=== PATIENT | male | born 1965 | race Caucasian/White ===

== ENCOUNTER 2023-04-14 09:06 | Day surgery (SDC) | payer OTHER, SELFPAY ==
--- NOTE | 2023-04-13 22:59 | PCM.HP.BLA ---
History and Physical Date of Admission: 04/14/23 HISTORY OF PRESENT ILLNESS 58 year old man presents for evaluation for TBSE. He has concerns about lesions on his left occipital scalp near the hairline by posterior ear, posterolateral aspect distal right arm, and left axilla. These lesions have increased in size over the last several months. Have become more raised in configuration. He denies fever. He denies trauma. He denies recent infection. He presents at this time for further evaluation and treatment. 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 use of patternmaker plastics anticoagulation History of blood clots Neoplasm of skin of scalp Neoplasm of skin of upper arm Neoplasm of skin of upper extremity PAST SURGICAL HISTORY History of shoulder surgery Excision 1.3 cm intradermal nevus right temporal scalp, superior, with rhomboid transposition skin flap reconstruction (4.5 cm2) and excision 1 cm intradermal nevus right temporal scalp, inferior, with rhomboid transposition skin flap reconstruction (2.9 cm2) - 06/29/17 ALLERGIES No Known Allergies MEDICATIONS ezetimibe-simvastatin coenzyme [id number] E vitamin B complex multivitamin (Multiple Vitamins tablet) rivaroxaban (Xarelto) FAMILY HISTORY negative for skin cancer. Mother - Heart Disease, High Cholesterol Father - Heart Disease, Hypertension, High Cholesterol, Other Cancer. SOCIAL HISTORY Smoking Status: Never smoker Patient does not drink alcohol. REVIEW OF SYSTEMS General-denies fever, fatigue, and weight loss. Ear nose and throat-denies nasal congestion sore throat. Eyes-denies eye pain. Denies glaucoma. Denies cataracts. Endocrine-denies excessive thirst or urination. Skin-has enlarging lesions on his left occipital scalp near the hairline by posterior ear, posterolateral aspect distal right arm, and left axilla. Musculoskeletal-denies joint pain, joint stiffness, weakness of muscles and joints, back pain and arthritis. Neurologic-denies headaches. Cardiovascular-denies chest pain, shortness of breath with exertion, and fatigue, Psychiatric-denies anxiety. Denies depression. Has a little claustrophobia. Respiratory-denies chronic cough. Denies shortness of breath. Gastrointestinal-denies nausea, vomiting, diarrhea, constipation. Hematologic-denies abnormal bruising and bleeding. Genitourinary-denies hematuria and urinary frequency. PHYSICAL EXAMINATION General-well developed, well nourished, in no acute distress. HEENT-pupils equal round and reactive to light. Extraocular muscles intact. Throat is clear. On the left occipital scalp near the hairline by posterior ear is an erythematous lesion that is nodular and raised in configuration. Measures 0.5 cm. Has irregular borders. No ulceration. Lesion is nontender. Neck-supple and nontender. No cervical adenopathy. No suspicious lesions noted. Chest wall-no suspicious lesions noted. Lungs-clear to auscultation. Heart-regular rate and rhythm. Abdomen-soft and nondistended. Extremities-full range of motion. No axillary adenopathy. Radial pulses are palpable. On the posterolateral aspect distal right arm is an erythematous lesion that has irregular borders. Measures 1.2 cm. Slightly raised in configuration. No ulceration. In the left axilla is a pedunculated lesion that measures 0.5 mm. It is raised in configuration with irregular borders. Some tenderness to palpation. No ulceration. No other suspicious lesions noted. Neuro--cranial nerves II through XII grossly intact. Psych-normal mood and affect. ASSESSMENT 1. 0.5 cm erythematous lesion left occipital scalp near hairline by posterior ear. 2. 1.2 cm erythematous lesion posterolateral aspect distal right arm. 3. 0.5 cm irritated lesion left axilla. 4. History of blood clots. 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 PLAN Recommend excision of these lesions (left occipital scalp near hairline by posterior ear, posterolateral aspect distal right arm, and left axilla) and send them to Pathology for analysis to rule out carcinoma. If carcinoma is present, then will need further excision with skin graft or skin flap reconstruction. Patient is on patternmaker plastics anticoagulation with Xarelto. Will check with his PCP to see who manages the medication and if it is safe to stop the medication for a couple of days at the time of surgery. Surgery will be done on an outpatient basis under local anesthesia and IV sedation. Patient was informed of the risks and complications of the procedure including alternatives to surgery. These were discussed with the patient personally. Patient voices understanding and wishes to proceed. Some of the risks and complications were included in a form from the [employer]. Potential risks and complications included but not inclusive of bleeding, infection, seroma, hematoma, bruising, swelling, loss of sensation to skin, partial or complete loss of skin flap and/or skin graft, wound breakdown, need for wound care, poor scarring, poor aesthetic outcome, intra operative cardiac or neurologic events, DVT, PE, and reaction to anesthesia.
--- NOTE | 2023-04-14 | IMM_PTH ---
PATIENT: EMMA FLORENCE [place] [facility] [place][id number] AGE/SX: 58/M ROOM: RE04/14/[address]: Dr. Coleman Yu MD : 1965 BED: DIS: 04/14/2023 SPEC #: [id number] RECD: 04/16/23 12:30 STATUS: LUIS REQ #: [id number] AIDEE: 04/14/23 00:[address]: Coleman Yu DEPT: IMMUNOHISTOCHEMISTRY RECD BY: Francine Webber ENTERED: 04/16/23 12:32 SP TYPE: IMMUNO OTHR DR: HEATHER Dunn Tissues: A - Skin of scalp, NOS Procedures: SMA (add) CD31 (add) CD34 (add) DESMIN (add) FACTOR VIII (add) MELAN-A (add) Vimentin (initial) S-100 (add) PHYSICIAN & INSTITUTION [place] [id number] SPECIMEN INFORMATION: Tissue Source: A - Left occipital skin lesion Clinical Info: Erythematous lesion left occipital scalp by posterior ear Specimen Number: [id number] CPT code: 17007, 02391 x7 METHODOLOGY: Deparaffinized sections of prefer/formalin-fixed tissue or PAP/DQ stained slides are incubated with monoclonal/polyclonal antibodies/oligonucleotide probes. Localization is made via biotin free immunoperoxidase method. Appropriate controls are performed and reacted as expected. Results on target cell population are indicated in the following table: RESULTS: ANTIBODY / CLONE RESULT Block A Vimentin (V9) positive CD31 (SHAYY/70A) negative Factor VIII (R Ag) negative CD34 (QBEnd-10) negative Actin (1A4) positive, weak Desmin (CE-R-11) negative Melan A (A103) negative S-100 (4C4.9) positive These tests were developed and their performance characteristics determined by [facility]. They may not have been cleared or approved by the U.S. Food and Drug Administration. The FDA has determined that such clearance or approval is not necessary. The above immunohistochemical/dualISH markers are ordered and reviewed by the Pathologist. INTERPRETATION: A. Left occipital skin lesion, shave biopsy: Benign neural tumor, favor schwannoma. ILYA:thompson 04/19/2023
--- NOTE | 2023-04-14 | LES_PTH ---
PATIENT: EMMA [place] [facility] [place][id number] AGE/SX: 58/M ROOM: RE04/14/[address]: Dr. Coleman Yu MD : 1965 BED: DIS: 04/14/2023 SPEC #: [id number] RECD: 04/14/23 11:32 STATUS: LUIS LULÚ #: [id number] AIDEE: 04/14/23 00:[address]: Coleman Yu DEPT: SURGICAL PATHOLOGY RECD BY: Francine Webber ENTERED: 04/14/23 12:06 SP TYPE: Lesion OTHR DR: HEATHER Dunn Tissues: A - Skin of scalp, NOS B - Skin of arm C - Skin of axilla, NOS D - Skin of arm Procedures: Frozen Section (charge) Surgery Specimen Level III HEADER OPERATION: Excision lesion left occipital scalp near hairline by posterior ear PRE-OP DIAGNOSIS: Erythematous lesion left occipital scalp by posterior ear; Erythematous lesion posterolateral aspect distal right arm; irritated lesion left axilla TISSUE SUBMITTED: A - Left occipital skin lesion, frozen section, B - Skin lesion, distal right arm, frozen section, C - Irritated lesion left axilla, suture at 12 o'clock, D - Actinic keratosis with atypia, suture at 12 o'clock FROZEN SECTION DIAGNOSIS A. Left occipital skin lesion, shave biopsy: Favor benign fibrous/neural lesion. B. Skin lesion, distal right arm, shave biopsy: Actinic change with moderate to focal severe atypia. AM:thompson 04/14/2023 MICROSCOPIC DIAGNOSIS A. Left occipital skin lesion, shave biopsy: Benign neural tumor, favor schwannoma. See comment. B. Skin lesion, distal right arm, shave biopsy: Actinic keratosis with moderate to severe atypia and focal squamous cell carcinoma in situ. C. Irritated lesion left axilla, biopsy: Fibroepithelial polyp (skin tag). D. Actinic keratosis with atypia distal right arm, excisional biopsy: Actinic keratosis with focal moderate to severe atypia/squamous cell carcinoma in situ. Solar elastosis. Focal ulceration, biopsy site of specimen B. See comment. SJ:thompson 04/16/2023 COMMENT A. Immunohistochemistry ([id number]) supports the above diagnosis. D. The resection margins are free of atypia/squamous cell carcinoma in situ. Case has been reviewed in consultation with Dr. Barber who concurs with the above diagnosis. IDC:AM MICROSCOPIC DESCRIPTION Slides are reviewed. GROSS DESCRIPTION A - Received fresh for frozen section consultation labeled with the patient's name is a specimen designated lesion left occipital scalp. The specimen consists of a holbrook shaved biopsy of skin measuring 0.7 x 0.6 x <0.1 cm. The specimen is inked, bisected and totally submitted for frozen section consultation in one block. / AM: 04/14/2023 B - Received fresh for frozen section consultation labeled with the patient's name is a specimen designated lesion posterior distal right arm. The specimen consists of a single shaved biopsy of holbrook skin measuring 1.1 x 1.1 x 0.1 cm. The specimen is inked, serially sectioned and totally submitted for frozen section consultation in one block. / SJ: 04/14/2023 C - Received in fixative is one container labeled with the patient's name and designated irritated lesion left axilla. The specimen consists of a dark holbrook fragment of skin with suture at 12 o'clock measuring 1.0 x 0.5 x 0.5 cm. The 12 o'clock position is inked in black ink. The remainder of the specimen is inked in red ink. The specimen is bisected and totally submitted in one cassette. / AM: 04/15/2023 D - Received in fixative is one container labeled with the patient's name and designated actinic keratosis. The specimen consists of an ellipse of excised skin measuring 3.0 x 2.2 x 0.3 cm. A suture is present at the 12 o'clock position. The specimen is differentially inked as follows: 12 o'clock - black, 3?o'clock - green, 6 o'clock - blue and 9 o'clock - red. The cutaneous surface displays a shallow ulcer measuring 1.2 cm in greatest dimension consistent with recent biopsy. The specimen is serially sectioned and totally submitted in two cassettes. / AM:thompson 04/15/2023 TC:0 CPT: 53640 x3, 91542, 93177 x2
[2023-04-14] MEDS: Lactated Ringers 1,000 ML 15 ML IV (09:50)
[2023-04-14 09:52] VITALS: BP 140/92; PULSE 62; RESP 18; TEMP 36.4; O2SAT 100; BMI 29.5
[2023-04-14] MEDS: Mupirocin Ointment 22gm Tube 1 APPLIC (10:18)
[2023-04-14] MEDS: Lidocaine 1% /Epi 1:100 (50ml) 50 ML VIAL (10:19)
[2023-04-14] MEDS: Clindamycin 900 MG/50 ML BAG 75 MG IV (10:35)
[2023-04-14 12:45] VITALS: BP 105/63; BP 140/92; PULSE 54; RESP 16; TEMP 36.3; O2SAT 100
[2023-04-14 12:50] VITALS: BP 110/69; BP 140/92; PULSE 56; RESP 16; O2SAT 100
[2023-04-14 12:55] VITALS: BP 125/84; BP 140/92; PULSE 66; RESP 16; O2SAT 99
[2023-04-14 12:59] VITALS: BP 131/74; BP 140/92; PULSE 62; RESP 16; TEMP 36.7; O2SAT 100
--- NOTE | 2023-04-14 13:07 | OP.PCM_ITS ---
Problems Associated Problem List Diagnoses (1) Neoplasm of skin of scalp: (2) Neoplasm of skin of upper arm: (3) Neoplasm of skin of upper extremity: (4) Actinic keratosis: (5) History of blood clots: (6) Current use of alf anticoagulation: Report of Operation Date of Procedure: 04/14/23 Pre-Operative Diagnosis: 1. 0.5 cm erythematous lesion left occipital scalp near hairline by posterior ear. 2. 1.2 cm erythematous lesion posterolateral aspect distal right arm. 3. 0.5 cm irritated lesion left axilla. 4. History of blood clots. 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 Post-Operative Diagnosis: 1. 0.5 cm benign lesion left occipital scalp near hairline by posterior ear. 2. 1.2 cm actinic keratosis with atypia posterolateral aspect distal right arm. 3. 0.5 cm irritated lesion left axilla. 4. History of blood clots. 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 Surgery/Procedure Performed:: 1. Intradermal excision 0.5 cm benign lesion left occipital scalp near hairline by posterior ear. 2. Excision 1.2 cm actinic keratosis with atypia posterolateral aspect distal right arm with rhomboid transposition skin flap reconstruction (10.58 cm2). 3. Excision 0.5 cm irritated lesion left axilla with 1.5 cm layered closure. Description of Surgical Findings:: 58 year old man presents for evaluation for TBSE. He has concerns about lesions on his left occipital scalp near the hairline by posterior ear, posterolateral aspect distal right arm, and left axilla. These lesions have increased in size over the last several months. Have become more raised in configuration. He denies fever. He denies trauma. He denies recent infection. Patient was informed of the risks and complications of the procedure including alternatives to surgery. These were discussed with the patient personally. Patient voices understanding and wishes to proceed. Some of the risks and complications were included in a form from the [employer]. Potential risks and complications included but not inclusive of bleeding, infection, seroma, hematoma, bruising, swelling, loss of sensation to skin, partial or complete loss of skin flap and/or skin graft, wound breakdown, need for wound care, poor scarring, poor aesthetic outcome, intra operative cardiac or neurologic events, DVT, PE, and reaction to anesthesia. Frozen section left occipital scalp near hairline by posterior ear lesion - benign, and no carcinoma seen. Frozen section posterolateral aspect distal right arm lesion - actinic keratosis with atypia, and no carcinoma seen, and could not rule out invasion . Surgeon: Coleman Yu MD wildland firefighter: Melodie Davison RNFA Type of Anesthesia: Local MAC (Xylocaine with epinephrine and IV sedation.) Anesthesiologist: Filemon Acosta MD and Socorro Harris CRNA Specimen's removed: 1. Erythematous lesion left occipital scalp near hairline by posterior ear to Pathology as a frozen section. 2. Erythematous lesion posterolateral aspect distal right arm to Pathology as a frozen section. 3. 0.5 cm irritated lesion left axilla to Pathology. 4. Actinic keratosis with atypia posterolateral aspect distal right arm to Pathology. Drains: None. Estimated Blood Loss (mL): 20. Description of Procedure: Patient was taken to OR in supine position and was given IV sedation. The was prepped and draped in the usual fashion. SCD's were placed for DVT prophylaxis. Perioperative antibiotics were given intravenously. The erythematous lesion left occipital scalp near hairline by posterior ear, erythematous lesion posterolateral aspect distal right arm, and irritated lesion left axilla were infiltrated with xylocaine and epinephrine. After waiting 5 minutes for the anesthetic to take effect, I excised the left occipital scalp near hairline by posterior ear lesion and the posterolateral aspect distal right arm lesion in an intradermal fashion and sent to Pathology as a frozen section for analysis to rule out carcinoma. While Pathology was working on the frozen sections, I excised the irritated lesion left axilla in an oblique elliptical fashion down into the subcutaneous tissue. A suture was marked at the 12 oclock position for pathology orientation. The lesion was sent to Pathology for analysis to rule out carcinoma. Hemostasis was obtained with electrocautery. The wound was c losed in a layered fashion with 3-0 Monocryl interrupted sutures for the deep dermis and subcutaneous tissue. The skin was approximated with 4-0 Nylon simple interrupted sutures. Antibiotic ointment was applied to the incision followed by an Op-Site dressing. At this time, the frozen sections were available. The left occipital scalp near hairline by posterior ear lesion was a benign lesion and no carcinoma seen. The posterolateral aspect distal right arm lesion was an actinic keratosis with atypia, and no carcinoma seen and could not rule out invasion. So no more surgery will be done to the left occipital scalp near hairline by posterior ear lesion. Hemostasis was obtained with silver nitrate chemical cauterization. Antibiotic ointment was applied. He will need further surgery on the posterolateral aspect distal right arm lesion which showed an actinic keratosis with atypia. Since we could not rule out invasion, a full thickness excision will be done into the subcutaneous tissue. In case the final pathology report shows invasive carcinoma, I will proceed with the appropriate margin as though invasive carcinoma was already present. By doing this, no further surgery would be needed. I marked out the lesion with a 5 mm margin in all directions in a rhomboid fashion. After infiltrating the markings with xylocaine and epinephrine, Incisions were made in a rhomboid fashion. The lesion was excised in a full thickness fashion. A suture was marked at the 12 oclock position for pathology orientation. The lesion was sent to Pathology for analysis to rule out carcinoma at the margins. A rhomboid flap was designed adjacent to the wound. Incisions were made and the flap was elevated on a subcutaneous pedicle, and the flap was easily transposed into the wound defect with minimal distortion and minimal tension. Hemostasis was obtained with electrocautery. The flap was then sutured to the wound in a layered fashion with 3-0 Monocryl interrupted sutures for the deep dermis and subcutaneous tissue. The skin was approximated with 4-0 Nylon simple interrupted sutures. No vascular compromise was noted on the flap. No clinical evidence of hematoma. The size of the wound and the size of the flap needed to close the wound defect was 10.58 cm2. Antibiotic ointment was applied to the suture lines followed by 4x4 gauze and a compression dayami wrap. Patient tolerated the procedure well and was sent to PACU in satisfactory condition. Patient will be sent home on antibiotics and pain medication. He will keep his head and right arm elevated during the initial postoperative period. Patient will followup in a week for a wound check and for discussion of the pathology report. I will remove the sutures in 2 weeks. Grafts/Implants Used: None. Procedure Start Time: 11:22 Procedure Stop Time: 12:38 Complications None. Admit VTE Documentation VTE Present on Admission: No VTE Mechan Device Prophylaxis: SCD's VTE Pharm Prophylaxis ordered?: No Addendum Addendum: Surgery Charges CPT - 59059 ICD-10 - L57.0, D49.2, Z86.718, Z79.01 05958 D49.2, Z86.718, Z79.01, D49.2 34878 D49.2, Z86.718, Z79.01, D49.2 07452 D49.2, Z86.718, Z79.01, D49.2
--- NOTE | 2023-04-14 13:14 | DCINST_ITS ---
Discharge Instructions Diet Discharge Diet: No restrictions and - (encourage nutritional supplementation with protein to help the healing process.) Activity Discharge Activity: May Shower (in two days.) and - (no heavy lifting. elevate right arm. keep head elevated.) May shower in (days): 2 May resume sexual activity in: No Restrictions Weight Bearing Status: Weight bearing as tolerated Lifting Restrictions: 20 lbs. Keep extremity elevated above heart level: Right Arm and - (elevate head) Dressing / Incision Call your doctor if your incision/area has: Continuous Slow Oozing, Sudden Increased Bleeding, Increased Pain/ Swelling, Increased Redness, Foul Smelling Discharge and Swelling at the incision site Call your doctor if you observe: Fever of 101 or Higher, Coldness, Increased Pain, Shortness of breath, Chest pain, Calf discomfort and Uncontrolled pain Suture Line Care: - (after removing the operative dressing in two days, apply antibiotic ointment to suture lines daily.) Remove Dressing in: 2 days (after removing the operative dressing in two days, apply antibiotic ointment to suture lines daily.) Cleanse incision/area with: Soap & Water (may get incisions wet in the shower in two days.) Follow Up Care Please Follow Up With: Coleman Yu MD When: one week. call [phone] for appt. Test Results: Test results from this visit will be discussed in further detail at your follow- up appointment, if applicable. Discharge Plan Admission Primary Reason for Your Visit: excision actinic keratosis with atypia posterolateral aspect rt distal arm Attending Provider: Coleman Yu Primary Care Provider: Rigoberto Henriquez Discharge Orders/Prescriptions Prescriptions: New clindamycin HCl [Cleocin HCl] 300 mg capsule 300 mg PO TID Qty: 12 0RF L.acidoph,saliva-B.bif-S.therm [Acidophilus Probiotic Blend] 175 mg capsule 1 cap PO DAILY Qty: 10 0RF oxycodone-acetaminophen [Percocet] 5-325 mg tablet 1 tab PO Q6H PRN (Reason: pain (scale score 7-10)) 5 Days Qty: 20 0RF Rx Instructions: 20 tabs (twenty) Continued Xarelto 10 mg tablet 10 mg PO DAILY Rx Instructions: for 35 days multivitamin [Multiple Vitamins] Tablet 1 tab PO DAILY ezetimibe-simvastatin 1 TABLET tablet 1 tab PO QPM vitamin B complex 1 EACH tablet 1 ea PO DAILY coenzyme [id number] E 1 EACH capsule 1 ea PO DAILY Referrals / Follow Up: Rigoberto Henriquez PA [Primary Care Provider] - Disposition Disposition (needs filled in before D/C Order can be placed): Home, Self Care
[2023-04-14 14:11] VITALS: BP 126/78; BP 140/92; PULSE 55; RESP 18; TEMP 36.6; O2SAT 96
== END 2023-04-14 14:37 | disposition home or self-care (01) ==
LOC: SDC 09:08 → AC 09:10
PROVIDERS: PCP Physician Assistant; Referring Provider Surgery; Visit Provider Surgery
PROC: (CPT 12031; principal; 2023-04-14 10:20)
DX: L57.0 Actinic keratosis (principal); Z79.01 Long term (current) use of anticoagulants; D49.2 Neoplasm of unspecified behavior of bone, soft tissue, and skin; Z86.718 Personal history of other venous thrombosis and embolism
CPT/HCPCS: 12031; 11305; 11401; 14021; 00300; 88304; 88305; 88331; 88341; 88342; J7120; J2405

== ENCOUNTER → 2023-08-31 | Outpatient (CLI) | payer OTHER, SELFPAY ==
--- OUTSIDE RECORDS SUMMARY | 2023-08-31 08:32 | XMS RPT_ITS | CCD ---
Author Name Unknown Address [id number] [place] [address] Organization [facility] Care Team Providers Care Filler Shredder Machine Name Role Phone Coleman Yu MD Unavailable Gladys Wilson Unavailable Gladys Wilson Primary Care Provider Gladys Wilson Primary Care Provider DURGA ANDRE Attending Unavailable GLADYS WILSON Primary Care Unavailable DURGA ANDRE Attending Unavailable GLADYS WILSON Primary Care Unavailable DURGA ANDRE Attending Unavailable GLADYS WILSON Primary Care Unavailable DURGA ANDRE Admitting Unavailable DURGA ANDRE Referring Unavailable GLADYS WILSON Primary Care Unavailable LAURA WHITLOCK Attending Unavailable DURGA ANDRE Attending Unavailable GLADYS WILSON Primary Care Unavailable DURGA ANDRE Attending Unavailable GLADYS WILSON Primary Care Unavailable DURGA ANDRE Attending Unavailable TOMGLADYS TRAN Primary Care Unavailable DURGA ANDRE Attending Unavailable TOMGLADYS TRAN Primary Care Unavailable DURGA ANDRE Attending Unavailable TOMGLADYS TRAN Primary Care Unavailable DURGA ANDRE Attending Unavailable GLADYS WILSON Primary Care Unavailable DURGA ANDRE Attending Unavailable GLADYS WILSON Primary Care Unavailable DURGA ANDRE Admitting Unavailable TOMGLADYS TRAN Primary Care Unavailable DURGA ANDRE Admitting Unavailable MICHAEL POLKIKA Attending Unavailable DURGA ANDRE Referring Unavailable GLADYS WILSON Primary Care Unavailable DURGA ANDRE Admitting Unavailable RM RAMIREZ Attending Unavailable ANDRE, DURGA ADAN Referring Unavailable GLADYS WILSON Primary Care Unavailable ANDRE, DURGA ADAN Admitting Unavailable WARNES, RM Attending Unavailable ANDRE, DURGA ADAN Referring Unavailable TOMGLADYS TRAN Primary Care Unavailable ANDRE, DURGA ADAN Admitting Unavailable WARNES, RM Attending Unavailable ANDRE, DURGA ADAN Referring Unavailable TOMGLADYS TRAN Primary Care Unavailable ANDRE, DURGA ADAN Admitting Unavailable WARNES, RM Attending Unavailable ANDRE, DURGA ADAN Referring Unavailable TOMGLADYS TRAN Primary Care Unavailable ANDRE, DURGA ADAN Admitting Unavailable MALIK, CHRISTOPHER Attending Unavailable ANDRE, DURGA ADAN Referring Unavailable TOMGLADYS TRAN Primary Care Unavailable ANDRE, DURGA ADAN Admitting Unavailable MALIK, CHRISTOPHER Attending Unavailable ANDRE, DURGA ADAN Referring Unavailable TOMMARC, GLADYS URIBE Primary Care Unavailable ANDRE, DURGA ADAN Admitting Unavailable MALIK, CHRISTOPHER Attending Unavailable ANDRE, DURGA ADAN Referring Unavailable TOMGLADYS TRAN Primary Care Unavailable ANDRE, DURGA ADAN Admitting Unavailable WARNES, RM Attending Unavailable ANDRE, DURGA ADAN Referring Unavailable TOMGLADYS TRAN Primary Care Unavailable ANDRE, DURGA ADAN Admitting Unavailable WARNES, RM Attending Unavailable ANDRE, DURGA ADAN Referring Unavailable GLADYS WILSON Primary Care Unavailable TOMGLADYS TRAN Primary Care Unavailable COLOMBIAN, DEMETRIS LYLES Attending Unavailable COLOMBIAN, DEMETRIS LYLES Admitting Unavailable Gladys Wilson Primary Care Provider Gladys Wilson Unavailable Pedro Escobar Unavailable Unavailable NewTed horner M Unavailable Unavailable Unavailable Newsiri Ted Unavailable Heather Cee Unavailable Unavailable Hamad, Ty Unavailable Unavailable Newbill, Ted M Unavailable Unavailable Unavailable Unavailable Unavailable Martinez, Mr. Louismilla Omalley Primary Care Unavail able Newbill, Ted Omalley Primary Care Unavail able Newbill, Mr. Louismilla Omalley Primary Care Unavail able Newbill, Mr. Louismilla Omalley Attending Unavail able Newbill, Mr. Ted Omalley Referring Unavail able Newbill Ted PAREDES Primary Care Provider MARTINEZ, GRANT OMALLEY Attending Unavail able NEWBILL, PAC TED SHAHRAM Primary Care Unavail able NEWBILL, PAC TED SHAHRAM Attending Unavail able NEWBILL, PAC TED SHAHRAM Primary Care Unavail able NEWBILL, PAC TED OMALLEY Primary Care Unavail able Hamad, Dr. Crawford Attending Unavailable Hamad, Dr. Crawford Admitting Unavailable Hamad, Dr. Crawford Attending Unavailable NEWBILL, PAC TED OMALLEY Primary Care Unavail able Hamad, Dr. Crawford Admitting Unavailable Hamad, Dr. Crawford Attending Unavailable NEWBILL, PAC TED OMALLEY Primary Care Unavail able Horn, Ms. Yancey Attending Unavailable Newbill, Mr. Ted Omalley Primary Care Unavail able Horn, Ms. Yancey Attending Unavailable Newbill, Mr. Ted Omalley Primary Care Unavail able NEWBILL, TED M Primary Care Unavailable NEWBILL, TED M Primary Care Unavailable NEWBILL, TED M Primary Care Unavailable RASHAD EAGLE S Attending Unavailable RASHAD EAGLE Referring Unavailable NEWBILL, TED M Primary Care Unavailable FCO, RASHAD S Referring Unavailable NEWBILL, TED M Primary Care Unavailable RASHAD EAGLE S Attending Unavailable FCO, RASHAD S Referring Unavailable NEWBILL, TED M Primary Care Unavailable NEWBILL, TED M Attending Unavailable NEWBILL, TED M Primary Care Unavailable CHAU HUGO Attending Unavailable FCO, RASHAD S Referring Unavailable NEWBILL, TED M Primary Care Unavailable NEWBILL, TED M Attending Unavailable NEWBILL, TED M Primary Care Unavailable NEWBILL, TED M Attending Unavailable NEWBILL, TED M Primary Care Unavailable Allergies Allergy Classification Reported Allergen(s) Allergy Type Date of Onset Reaction(s) Facility (1 source) ALLERGIES NOT ON FILE; Translations: [ALLERGIES NOT ON FILE] Propensity to adverse reactions (disorder) [facility] Medications Current Medications Medication Drug Class(es) Dates Sig (Normalized) Sig (Original) ezetimibe 10 mg / simvastatin 20 mg oral tablet (20 sources) HMG-CoA Reductase Inhibitor, Dietary Cholesterol Absorption Inhibitor Start: 01-13-2021 End: 12-22-2022 take 1 tablet by mouth once daily ezetimibe-simvasta tin (Vytorin) 10-20 mg tablet Indications: Dyslipidemia Take 1 tablet by mouth once daily. 90 tablet 3 12/22/2022 Active Completed/Discontinued Medications Medication Drug Class(es) Dates Sig (Normalized) Sig (Original) acetaminophen 325 mg / oxyCODONE hydrochloride 5 mg oral tablet (12 sources) Opioid Agonist Start: 04-14-2023 End: 06-08-2023 oxyCODONE-acetamino phen (Percocet) 5-325 mg tablet TAKE 1 TABLET BY MOUTH EVERY 6 HOURS NEEDED FOR PAIN (SCALE SCORE 7-10) FOR 5 DAYS 20 tablet 0 04/14/2023 06/08/2023 Discontinued (Med List Cleanup) Problems Active Problems Problem Classification Problem Date Documented Da te Episodic/Chronic Administrative/social admission (2 sources) Encounter for nonprocreative genetic counseling; Translations: [Patient care statuses] Onset: Episodic Cardiac dysrhythmias (13 sources) Supraventricular tachycardia; Translations: [Supraventricular tachycardia] Onset: 3 12-22-2022 Chronic Coagulation and hemorrhagic disorders (20 sources) Factor V Leiden mutation; Translations: [Primary hypercoagulable state] Onset: 3 12-22-2022 Chronic Disorders of lipid metabolism (16 sources) Dyslipidemia; Translations: [Other and unspecified hyperlipidemia] Onset: 3 12-22-2022 Chronic Immunizations and screening for infectious disease (2 sources) Contact with or exposure to other viral diseases; Translations: [Contact with and (suspected) exposure to other viral communicable diseases] 03-13-2021 Episodic Other circulatory disease (5 sources) 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; Translations: [Nevus, non-neoplastic] Onset: 3 06-08-2023 Episodic Other connective tissue disease (3 sources) Impingement syndrome of right shoulder; Translations: [Impingement syndrome of right shoulder] Onset: 8 06-28-2018 Episodic Other connective tissue disease (2 sources) Rotator cuff syndrome; Translations: [Traumatic tear of right rotator cuff, unspecified tear extent, subsequent encounter] Episodic Other connective tissue disease (1 source) Pain in right lower limb; Translations: [Pain in limb] 01-07-2021 Episodic Other connective tissue disease (1 source) Pain in lower limb; Translations: [Pain in limb] Onset: 1 01-07-2021 Episodic Other connective tissue disease (11 sources) Lateral epicondylitis of left humerus; Translations: [Lateral epicondylitis] Episodic Other connective tissue disease (1 source) Tear of right rotator cuff; Translations: [Right rotator cuff tear] Other connective tissue disease (1 source) Pain in bilateral legs; Translations: [Leg pain, bilateral] Other lower respiratory disease (9 sources) Dyspnea; Translations: [Dyspnea, unspecified] Onset: 3 06-04-2023 Episodic Other lower respiratory disease (2 sources) Dyspnea, unspecified; Translations: [Dyspnea, unspecified] Onset: 3 Episodic Other nutritional; endocrine; and metabolic disorders (11 sources) H/O: raised blood lipids; Translations: [Personal history of other endocrine, metabolic, and immunity disorders] Episodic Other screening for suspected conditions (not mental disorders or infectious disease) (2 sources) Encounter for nonprocreative screening for genetic disease carrier status; Translations: [Breast cancer genetic marker of susceptibility negative] Onset: 3 Episodic Other skin disorders (1 source) Localized swelling, mass and lump, lower limb; Translations: [Localized superficial swelling, mass, or lump] 01-07-2021 Episodic Other skin disorders (1 source) Localized swelling, mass and lump, left upper limb; Translations: [Localized swelling, mass and lump, left upper limb] Onset: 3 Episodic Other upper respiratory infections (10 sources) Acute rhinosinusitis; Translations: [Acute sinusitis, unspecified] Episodic Phlebitis; thrombophlebitis and thromboembolism (13 sources) Superficial vein thrombosis; Translations: [Acute venous embolism and thrombosis of other specified veins] Onset: 3 02-11-2021 Episodic Past or Other Problems Problem Classification Problem Date Documented Date Episodic/Chronic Diabetes mellitus without complication (3 sources) Prediabetes; Translations: [Prediabetes] Onset: 12-22-2022 12-22-2022 Episodic Other connective tissue disease (1 source) Pain in right leg; Translations: [Pain in right leg] Onset: 03-05-2022 Episodic Other non-traumatic joint disorders (6 sources) Pain in left elbow; Translations: [Pain in left elbow] Onset: 03-01-2023 Episodic Residual codes; unclassified (20 sources) History of repair of musculotendinous cuff of shoulder; Translations: [S/P rotator cuff repair] Onset: 06-05-2019 06-05-2019 Episodic Unclassified (6 sources) Onset: 12-22-2022 Resolved: 08-16-2023 12-22-2022 Unclassified (3 sources) Supraventricular tachycardia, unspecified; Translations: [Supraventricular tachycardia, unspecified] Onset: 06-01-2023 Results Test Name Value Interpretation Reference Range Facil ity Vital Signs Date Time Vital Sign Value Performing Clinician Facility 08-16-2023 15:59-0500 Body height 180.3 cm Ted Newbill PA-C Work Phone: [facility] 08-16-2023 15:59-0500 Body mass index (BMI) [Ratio] 29.32 kg/m2 Ted Newbill PA-C Work Phone: [facility] 08-16-2023 15:59-0500 Body temperature 97.7 [degF] Ted Newbill PA-C Work Phone: [facility] 08-16-2023 15:59-0500 Body weight 95.35 kg Ted Newbill PA-C Work Phone: [facility] 08-16-2023 15:59-0500 Diastolic blood pressure 87 mm[Hg] Ted Newbill PA-C Work Phone: [facility] 08-16-2023 15:59-0500 Heart rate 94 /min Ted Newbill PA-C Work Phone: [facility] 08-16-2023 15:59-0500 Systolic blood pressure 148 mm[Hg] Ted Newbill PA-C Work Phone: [facility] 06-21-2023 10:06-0500 Body height 180.3 cm Rashad Eagle APRN-DIE CASTING MACHINE SETTER Work Phone: [facility] 06-21-2023 10:06-0500 Body mass index (BMI) [Ratio] 29.8 kg/m2 Rashad Eagle MANAGER AGENCY-DIE CASTING MACHINE SETTER Work Phone: [facility] 06-21-2023 10:06-0500 Body temperature 97.3 [degF] Rashad Eagle MANAGER AGENCY-DIE CASTING MACHINE SETTER Work Phone: [facility] 06-21-2023 10:06-0500 Body weight 96.89 kg Rashad Eagle MANAGER AGENCY-DIE CASTING MACHINE SETTER Work Phone: [facility] 06-21-2023 10:06-0500 Diastolic blood pressure 79 mm[Hg] Rashad Eagle MANAGER AGENCY-DIE CASTING MACHINE SETTER Work Phone: [facility] 06-21-2023 10:06-0500 Heart rate 70 /min Rashad Eagle MANAGER AGENCY-DIE CASTING MACHINE SETTER Work Phone: [facility] 06-21-2023 10:06-0500 Respiratory rate 16 /min Rashad Eagle MANAGER AGENCY-DIE CASTING MACHINE SETTER Work Phone: [facility] 06-21-2023 10:06-0500 SaO2% (BldA) [Mass fraction] 97 % Rashad Eagle MANAGER AGENCY-DIE CASTING MACHINE SETTER Work Phone: [facility] 06-21-2023 10:06-0500 Systolic blood pressure 125 mm[Hg] Rashad Eagle MANAGER AGENCY-DIE CASTING MACHINE SETTER Work Phone: [facility] 06-04-2023 11:48-0500 Body height 180.3 cm Rashad Eagle MANAGER AGENCY-DIE CASTING MACHINE SETTER Work Phone: [facility] 06-04-2023 11:48-0500 Body mass index (BMI) [Ratio] 29.78 kg/m2 Rashad Eagle MANAGER AGENCY-DIE CASTING MACHINE SETTER Work Phone: [facility] 06-04-2023 11:48-0500 Body temperature 97.7 [degF] Rashad Eagle MANAGER AGENCY-DIE CASTING MACHINE SETTER Work Phone: [facility] 06-04-2023 11:48-0500 Body weight 96.8 kg Rashad Eagle APRN-DIE CASTING MACHINE SETTER Work Phone: [facility] 06-04-2023 11:48-0500 Diastolic blood pressure 85 mm[Hg] Rashad Eagle APRN-DIE CASTING MACHINE SETTER Work Phone: [facility] 06-04-2023 11:48-0500 Heart rate 62 /min Rashad Eagle APRN-DIE CASTING MACHINE SETTER Work Phone: [facility] 06-04-2023 11:48-0500 Respiratory rate 16 /min Rashad Eagle APRN-DIE CASTING MACHINE SETTER Work Phone: [facility] 06-04-2023 11:48-0500 SaO2% (BldA) [Mass fraction] 96 % Rashad Eagle APRN-DIE CASTING MACHINE SETTER Work Phone: [facility] 06-04-2023 11:48-0500 Systolic blood pressure 131 mm[Hg] Rashad Eagle APRN-DIE CASTING MACHINE SETTER Work Phone: [facility] 03-15-2023 11:56-0400 Body mass index (BMI) [Ratio] 29.43 kg/m2 Ted Henriquez Work Phone: [facility] Work Phone: 03-15-2023 11:56-0400 Body surface area Derived from formula 2.16 m2 Ted Henriquez Work Phone: [facility] Work Phone: 03-15-2023 11:56-0400 Body weight 95.71 kg Ted Henriquez Work Phone: [facility] Work Phone: 03-15-2023 11:56-0400 Diastolic blood pressure 86 mm[Hg] Ted Henriquez Work Phone: [facility] Work Phone: 03-15-2023 11:56-0400 Heart rate 55 /min Ted Enrike Newbill Work Phone: [facility] Work Phone: 03-15-2023 11:56-0400 Systolic blood pressure 128 mm[Hg] Ted M Newbill Work Phone: [facility] Work Phone: 12-22-2022 15:16-0400 Body height 180.3 cm Ted Newbill PA-C Work Phone: [facility] 12-22-2022 15:16-0400 Body mass index (BMI) [Ratio] 28.97 kg/m2 Ted Newbill PA-C Work Phone: [facility] 12-22-2022 15:16-0400 Body weight 94.21 kg Ted Newbill PA-C Work Phone: [facility] 12-22-2022 15:16-0400 Diastolic blood pressure 77 mm[Hg] Ted Newbill PA-C Work Phone: [facility] 12-22-2022 15:16-0400 Heart rate 62 /min Ted Newbill PA-C Work Phone: [facility] 12-22-2022 15:16-0400 Systolic blood pressure 128 mm[Hg] Ted Newbill PA-C Work Phone: [facility] 03-11-2022 13:52-0400 Body height 180.34 cm Ted Enrike Newbill Work Phone: [facility] Work Phone: 03-11-2022 13:52-0400 Body mass index (BMI) [Ratio] 29.93 kg/m2 Ted M Newbill Work Phone: [facility] Work Phone: 03-11-2022 13:52-0400 Body surface area Derived from formula 2.17 m2 Ted M Newbill Work Phone: [facility] Work Phone: 03-11-2022 13:52-0400 Body weight 97.34 kg Ted Henriquez Work Phone: [facility] Work Phone: 03-11-2022 13:52-0400 Diastolic blood pressure 90 mm[Hg] Ted Henriquez Work Phone: [facility] Work Phone: 03-11-2022 13:52-0400 Heart rate 62 /min Ted Henriquez Work Phone: [facility] Work Phone: 03-11-2022 13:52-0400 SaO2% (BldA) [Mass fraction] 96 % Ted Henriquez Work Phone: [facility] Work Phone: 03-11-2022 13:52-0400 Systolic blood pressure 130 mm[Hg] Ted Henriquez Work Phone: [facility] Work Phone: 04-14-2021 14:09-0400 Body height 180.34 cm Ted Henriquez Work Phone: [facility] Work Phone: 04-14-2021 14:09-0400 Body mass index (BMI) [Ratio] 29.5 kg/m2 Ted Henriquez Work Phone: [facility] Work Phone: 04-14-2021 14:09-0400 Body surface area Derived from formula 2.16 m2 Ted Henriquez Work Phone: [facility] Work Phone: 04-14-2021 14:09-0400 Body temperature 97.8 [degF] Ted Enrike Newbill Work Phone: [facility] Work Phone: 04-14-2021 14:09-0400 Body weight 95.94 kg Ted Enrike Newbill Work Phone: [facility] Work Phone: 04-14-2021 14:09-0400 Diastolic blood pressure 79 mm[Hg] Ted Enrike Newbill Work Phone: [facility] Work Phone: 04-14-2021 14:09-0400 Heart rate 69 /min Ted Enrike Newbill Work Phone: [facility] Work Phone: 04-14-2021 14:09-0400 Systolic blood pressure 136 mm[Hg] Ted Enrike Newbill Work Phone: [facility] Work Phone: 03-13-2021 13:46-0400 Body height 180.3 cm Ted Newbill Other Phone: [facility] 03-13-2021 13:46-0400 Body temperature 98.6 [degF] Ted Newbill Other Phone: [facility] 03-13-2021 13:46-0400 Diastolic blood pressure 85 mm[Hg] Ted Newbill Other Phone: [facility] 03-13-2021 13:46-0400 Heart rate 81 /min Ted Newbill Other Phone: [facility] 03-13-2021 13:46-0400 Respiratory rate 16 /min Ted Newbill Other Phone: [facility] 03-13-2021 13:46-0400 SaO2% (BldA) [Mass fraction] 97 % Ted Newbill Other Phone: [facility] 03-13-2021 13:46-0400 Systolic blood pressure 125 mm[Hg] Ted Newbill Other Phone: [facility] 03-08-2021 09:03-0400 Body height 180.34 cm Ted Duartel Work Phone: [facility] Work Phone: 03-08-2021 09:03-0400 Body mass index (BMI) [Ratio] 29.99 kg/m2 Ted Henriquez Work Phone: [facility] Work Phone: 03-08-2021 09:03-0400 Body surface area Derived from formula 2.17 m2 Ted Duartel Work Phone: [facility] Work Phone: 03-08-2021 09:03-0400 Body temperature 98.4 [degF] Ted Henriquez Work Phone: [facility] Work Phone: 03-08-2021 09:03-0400 Body weight 97.52 kg Ted Henriquez Work Phone: [facility] Work Phone: 03-08-2021 09:03-0400 Diastolic blood pressure 85 mm[Hg] Ted Henriquez Work Phone: [facility] Work Phone: 03-08-2021 09:03-0400 Heart rate 70 /min Ted Duartel Work Phone: [facility] Work Phone: 03-08-2021 09:03-0400 SaO2% (BldA) [Mass fraction] 98 % Ted Calvert Newfloydl Work Phone: [facility] Work Phone: 03-08-2021 09:03-0400 Systolic blood pressure 134 mm[Hg] Ted Enrike Duartel Work Phone: [facility] Work Phone: 02-18-2021 09:56-0400 Body height 180.34 cm Ted Enrike Duartel Work Phone: [facility] Work Phone: 02-18-2021 09:56-0400 Body mass index (BMI) [Ratio] 29.67 kg/m2 Ted Duartel Work Phone: [facility] Work Phone: 02-18-2021 09:56-0400 Body surface area Derived from formula 2.16 m2 Ted Duartel Work Phone: [facility] Work Phone: 02-18-2021 09:56-0400 Body temperature 97.7 [degF] Ted Henriquez Work Phone: [facility] Work Phone: 02-18-2021 09:56-0400 Body weight 96.48 kg Ted Duartel Work Phone: [facility] Work Phone: 02-18-2021 09:56-0400 Diastolic blood pressure 84 mm[Hg] Ted Enrike Duartel Work Phone: [facility] Work Phone: 02-18-2021 09:56-0400 Heart rate 69 /min Ted Enrike Duartel Work Phone: [facility] Work Phone: 02-18-2021 09:56-0400 Systolic blood pressure 140 mm[Hg] Ted Enrike Newbill Work Phone: [facility] Work Phone: 01-07-2021 11:37-0400 Body height 180 cm Gladys Wilson Other Phone: [facility] 01-07-2021 11:37-0400 Body temperature 98.06 [degF] Gladys Wilson Other Phone: [facility] 01-07-2021 11:37-0400 Diastolic blood pressure 87 mm[Hg] Gladys Wilson Other Phone: [facility] 01-07-2021 11:37-0400 Heart rate 76 /min Gladys Wilosn Other Phone: [facility] 01-07-2021 11:37-0400 Systolic blood pressure 137 mm[Hg] Gladys Wilson Other Phone: [facility] 02-27-2020 14:26-0400 Body Temperature 98.1 [degF] [facility] 02-27-2020 14:26-0400 BP Diastolic 91 mm[Hg] [facility] 02-27-2020 14:26-0400 BP Systolic 147 mm[Hg] [facility] 02-27-2020 14:26-0400 Pulse (Heart Rate) 91 /min [facility] 02-27-2020 14:26-0400 Pulse Oximetry 98 % [facility] 02-27-2020 14:26-0400 Respiratory Rate 18 /min [facility] 06-28-2018 14:37-0500 BMI (Body Mass Index) 29.29 kg/m2 Durgasuha Andre [facility] 06-28-2018 14:37-0500 Height 180.3 cm Durgasuha Andre [facility] 06-28-2018 14:37-0500 Weight 95.25 kg Durgasuha Andre [facility] Encounters Encounter Date Encounter Type Care Provider Facility Start: 08-16-2023 End: 08-16-2023 ambulatory TED Calvert [facility] Ambulatory Start: 08-16-2023 End: 08-16-2023 Office outpatient visit 15 minutes Ted Henriquez PA-C Work Phone: [facility] Procedures Date Procedure Procedure Detail Performing Clinician Start: 08-16-2023 FOREIGN BODY REMOVAL - EMBEDDED TED HENRIQUEZ Start: 08-16-2023 Incision & removal f oreign body subq tiss simple Ted Henriquez PA-C Work Phone: Start: 06-21-2023 [facility] APPOIN TMENT REQUEST RASHAD FCO Start: 06-17-2023 CT CHEST W IV CONTRAST RASHAD FCO Start: 06-17-2023 Ct thorax w/contrast material Rashad Les Fco MANAGER AGENCY-DIE CASTING MACHINE SETTER Work Phone: Start: 06-08-2023 ECG 12-LEAD [facility] Start: 06-08-2023 AMB REFERRAL TO [facility] TED HENRIQUEZ Start: 06-01-2023 CBC W Auto Different ial panel - Blood TED HENRIQUEZ Start: 06-01-2023 Comprehensive metabo lic 2000 panel - Serum or Plasma TED HENRIQUEZ Start: 06-01-2023 D-DIMER, NON VTE TED N EWBILL Start: 04-07-2023 Nonphysician telepho ne assessment 5-10 min Ted Henriquez Work Phone: Start: 12-01-2022 Basic metabolic 2000 panel - Serum or Plasma TED NEWFLOYDL Start: 12-01-2022 Hemoglobin A1c/Hemoglobin.total in Blood TED HENRIQUEZ Start: 12-01-2022 Hepatic function 200 0 panel - Serum or Plasma TED NEWFLOYDL Start: 12-01-2022 Lipid panel TED [facility] Start: 12-01-2022 PROSTATE SPECIFIC AN TIGEN, SCREEN TED NEWFLOYDL Start: 12-01-2022 TSH WITH REFLEX TO F REE T4 IF ABNORMAL TED DUARTEL Start: 12-01-2022 Lipid 1996 panel - S citlalli or Plasma Ted Duartel PA-C Work Phone: Start: 02-27-2020 Dup-scan xtr veins complete bilateral study Perla Dacosta Work Phone: Start: 02-27-2020 Basic metabolic 2000 panel - Serum or Plasma Perla LDereje Dacosta Work Phone: Start: 02-27-2020 Complete blood count with white cell differential, automated Perla McginnisDereje Sheriffpiyush Work Phone: Start: 02-27-2020 Complete blood count with white cell differential, manual Perla Dacosta Work Phone: Start: 02-27-2020 INR in Platelet poor plasma by Coagulation assay Perla Dacosta Work Phone: Start: 03-08-2019 12 lead ECG Durga Carter Work Phone: Start: 01-18-2019 Mri any jt upper ext remity w/o contrast matrl Durga Adan Andre Work Phone: Start: 06-28-2018 End: 06-28-2018 Radex shoulder complete minimum 2 views Durga Arellano Andre Work Phone: Start: 07-06-2017 Colonoscopy Ted campos PA-C Work Phone: Colonoscopy Ted Henriquez Work Phone: Plan of Treatment Date Care Activity Detail Author Start: 12-02-2027 Lipid panel Lipid Panel [facility] Start: 07-06-2027 Screening for malignant neoplasm of colon [facility] Start: 12-01-2025 Diabetes mellitus screening Diabetes Screening [facility] Start: 12-23-2023 End: 12-23-2023 Patient encounter procedure 12/23/2023 2:30 PM EDT Office Visit [facility] [address] [place] [id number] Ted Henriquez PA-C [address] [facility] [place] [address] [facility] Start: 12-21-2023 End: 12-21-2023 Patient encounter procedure 12/21/2023 11:00 AM EDT Office Visit [facility] Medical Office Building [place] [address] [address] Rashad Eagle, MANAGER AGENCY-DIE CASTING MACHINE SETTER [address] [place] [address] [facility] Medical Office Building [facility] Start: 12-08-2023 End: 12-08-2023 Patient encounter procedure 12/08/2023 10:00 AM EDT Office Visit [facility] [address] [place] [id number] Marcelina Montelongo MD [address] [facility] [place] [address] [facility] Start: 12-02-2023 Hemoglobin A1c measurement Diabetes: Hemoglobin A1C [facility] Start: 06-23-2023 End: 12-23-2023 CBC panel - Blood by Automated count CBC Lab Routine Dyslipidemia Prediabetes Expected: 06/23/2023 (Approximate), Expires: 12/23/2023 [facility] Work Phone: Immunizations Immunization Date Immunization Notes Care Provider Fa cili 04-19-2019 influenza, injectabl e, quadrivalent, preservative free Ted M Newbill Work Phone: [facility] Work Phone: 04-19-2019 influenza virus vaccine, unspecified formulation Ted Newbill PA-C Work Phone: [facility] Work Phone: 06-07-2018 influenza, injectabl e, quadrivalent, preservative free Ted M Newbill Work Phone: [facility] Work Phone: Payers Date Payer Category Payer Private Health Insurance [id number] 2022 Unknown [id number] 2021 Unknown [id number] 1965 Unknown [id number] 2.16.840.1.368551.3.579.2 1967 Unknown [id number] 2.16.840.1.471344.3.579.2 .1967 Unknown [id number] 2.16.840.1.030938.3.579.2 1967 Unknown [id number] 2.840.1.593329.3.579.2 1967 Unknown [id number] 2.840.1.779043.3.579.2 1967 Unknown [id number] 2.840.1.519402.3.579.2 1967 Unknown [id number] 2.840.1.931388.3.579.2 1967 Unknown [id number] 2.840.1.998140.3.579.2 1967 Unknown [id number] 2.16840.1.392128.3.579.2 1967 Unknown [id number] 2.16840.1.514549.3.579.2 1967 Unknown [id number] 2.16840.1.886998.3.579.2 .90 1967 Unknown [id number] 2.16.840.1.921851.3.579.2 1967 Unknown [id number] 2.16.840.1.948261.3.579.2 1967 Unknown [id number] 2.16.840.1.813506.3.579.2 .90 1967 Unknown [id number] 2.16.840.1.285133.3.579.2 .903 1967 Unknown [id number] 2.16.840.1.271510.3.579.2 .1967 Unknown [id number] 2.16.840.1.225563.3.579.2 .1967 Unknown [id number] 2.16.840.1.614733.3.579.2 .1967 Unknown [id number] 2.16.840.1.748936.3.579.2 .1967 Unknown [id number] 2.16.840.1.452948.3.579.2 .1967 Unknown [id number] 2.840.1.179738.3.579.2 1967 Unknown [id number] 2.840.1.972650.3.579.2 .1967 Unknown [id number] 2.840.1.592966.3.579.2 .1967 Unknown [id number] 2.840.1.746910.3.579.2 .1967 Unknown [id number] 2.840.1.195159.3.579.2 .1068 1967 Unknown [id number] 2.840.1.036511.3.579.2 .1068 1967 Unknown [id number] 2.16840.1.069043.3.579.2 .1068 1967 Unknown [id number] 2.16.840.1.945343.3.579.2 .1068 1967 Unknown [id number] 2.16.840.1.685137.3.579.2 .1068 1967 Unknown [id number] 2.16.840.1.038705.3.579.2 .356 1967 Unknown [id number] 2.16.840.1.983292.3.579.2 .356 1967 Unknown [id number] 2.16.840.1.292355.3.579.2 .1245 1967 Unknown [id number] 2.16.840.1.384586.3.579.2 .1244 1967 Unknown [id number] 2.16.840.1.504688.3.579.2 .124 1967 Unknown [id number] 2.16.840.1.203718.3.579.2 .3 1967 Unknown [id number] 2.16.840.1.649452.3.579.2 .3 1967 Unknown [id number] 2.16.840.1.609437.3.579.2 .3 1967 Unknown [id number] 2.16.840.1.445589.3.579.2 .1243 1967 Unknown [id number] 2.16.840.1.420092.3.579.2 .1243 1967 Unknown [id number] 2.16.840.1.859616.3.579.2 .4 1967 Unknown [id number] 2.16.840.1.714864.3.579.2 .1244 Unknown [facility] GEHA xxx xxxxxxxxx Effective for all dates [id number] 1.2.840.316629.1.13.385.2 .7.3.243976.315 Unknown [facility] xxx [id number] Effective for all dates [id number] 1.2.840.435894.1.13.385.2 .7.3.841752.315 Unknown Social History Date Type Detail Facility Start: 06-28-2018 End: 12-22-2022 Tobacco smoking status NHIS Never smoker [facility] Start: 1965 Sex Assigned At Not on file [facility] Start: 01-24-2019 End: 03-22-2019 Alcohol intake Current non-drinker of alcohol (finding) [facility] Start: 12-12-2022 End: 08-16-2023 Exposure to SARS-CoV-2 (event) Not sure [facility] Start: 02-27-2020 End: 12-22-2022 Tobacco use and exposure Never used [facility] Tobacco smoking consumption unknown [facility] Start: 12-22-2022 End: 03-01-2023 Former smoker Former smoker [facility] Work Phone: Start: 12-22-2022 End: 08-16-2023 Alcohol intake Ex-drinker (finding) [facility] Work Phone: Start: 12-22-2022 End: 03-01-2023 Tobacco use panel [facility] Work Phone: Clinical Notes 03-08-2022 to 08-16-2023 Ted Henriquez PA-C - 08/16/2023 3:50 PM ESTPatient InstructionsRanehemiah Eagle APRN-BLU - 06/21/2023 10:00 AM ESTLyubov Andre RN - 06/21/2023 10:00 AM ESTPatient InstructionsPatient Instructions Note Date & Type Note Facility 08-16-2023 History of Present illness Narrative Associated Order(s): Foreign Body Removal Subjective Patient ID: Emma Florence is a 58 y.o. male who presents for Foreign Body in Skin (Patient had splinter in right palm x 2 weeks, states took splinter out and now having swelling and discomfort.). HPI Patient presents for possible retained foreign body in the right palm. Patient was working with wood and had a splinter in the right palm 2 weeks ago. Patient did remove the splinter from the area but there is persistent and worsening mild erythema and tenderness. Review of Systems Constitutional: See HPI Integumentary: See HPI Neurologic: Alert and oriented X4, No numbness, No tingling. All other systems are negative Objective BP 148/87 Pulse 94 Temp 36.5 C (97.7 F) (Temporal) Ht 1.803 m (5' 11 ) Wt 95.3 kg (210 lb 3.2 oz) BMI 29.32 kg/m Physical Exam General: Alert and oriented, No acute distress. Eye: Pupils are equal, round and reactive to light, Normal conjunctiva. HENT: Normocephalic, Neck: Supple Respiratory: Respirations are non-labored Musculoskeletal: Normal ROM and strength Integumentary: Right palm centrally with a small, erythematous wound with possible palpable firmness deep Neurologic: Alert, Oriented, Normal sensory, Cranial Nerves II-XII are grossly intact Psychiatric: Cooperative, Appropriate mood & affect. Foreign Body Removal Date/Time: 08/16/2023 4:27 PM Performed by: Ted Henriquez PA-C Authorized by: Ted Henriquez PA-C Consent: Consent obtained: Verbal Consent given by: Patient Risks, benefits, and alternatives were discussed: yes Risks discussed: Bleeding and infection Location: Location: Hand Hand location: R palm Depth: Subcutaneous Tendon involvement: None Anesthesia: Anesthesia method: Local infiltration Local anesthetic: Lidocaine 2% WITH epi Procedure type: Procedure complexity: Simple Procedure details: Incision length: 1x1 cm cruciate Localization method: Visualized Removal mechanism: Forceps Foreign bodies recovered: 1 Intact foreign body removal: yes Post-procedure details: Neurovascular status: intact Confirmation: No additional foreign bodies on visualization Skin closure: None Dressing: Antibiotic ointment and sterile dressing Procedure completion: Tolerated well, no immediate complications Assessment/Plan Retained foreign body of the right hand: Good results with procedure. Wound care reviewed. Follow-up as needed or as scheduled. Problem List Items Addressed This Visit None Visit Diagnoses Foreign body of skin of right hand - Primary Final diagnoses: [S60.554F] Foreign body of skin of right hand documented in this encounter [facility] Work Phone: 08-16-2023 Instructions Ted Henriquez PA-C - 08/16/2023 3:50 PM EST Wash daily with soap and water and dressed with bacitracin and gauze/Band-Aid. Do not submerge until wound heals. documented in this encounter [facility] Work Phone: 06-21-2023 History of Present illness Narrative Patient ID: Emma Florence is a 58 y.o. male. Subjective HPI Patient ID: Emma Florence is a 58 y.o. male. Subjective HPI History of Present Illness: ID Statement: EMMA FLORENCE is a 57 year old Male Chief Complaint: Evaluation for superficial venous thrombosis Interval History: Referred by Ted Henriquez PA-C Reason for referral: Superficial venous thrombosis HPI 55 year old man with hx of HL, former smoker and hx of prior DVT deemed to be provoked in the setting of shoulder surgery /sp xarelto who presented to the ER on 01/07/21 with pain and swelling in the right lower extremity. Venous dopplers showed acute superficial venous thrombosis of the accessory saphenous vein located within 3 cm of the common femoral vein. He was commenced on xarelto prophylactic dose. he woke with a sore muscle in his right thigh and by the evening it was red and hot and swollen, he monitored for few days, swelling decreased but he still felt a hard lump in his thigh when he decided to go to urgent care where his studies were done and he is now on xarelto 10 mg a day, after taking the Xarelto swelling and pain are much less he had recently no injuries or long travels his prior DVT was in the popliteal area around 2 years ago, on 03/29/19 he had left shoulder surgery with Dr. Andre, he was not immobilized, it happened few days after his surgery, he took xarelto x 90 days he never had a major bleeding, no hematochezia, melena or hematuria occasionally will have more bleeding from skin cuts had colonoscopy around 3 years ago which was negative Interval history - 06/21/23 Energy is decent, fatigued at times right leg gets fatigues, with numbness and tingling only felt in right thigh remains on Xarelto 10mg daily No abnormal bleeding or bruising issues Eating and drinking well Chest tightness- no pain Inability to get a cleansing breath or deep breath At times feels SOB regardless of activity Denies any cough No nausea, vomiting, diarrhea, or constipation No heamatochezia or melena No urinary issues, No hematuria denies dizziness and headaches No fever, chills or infections No lower extremity pain or swelling Over all is doing well Objective BSA: There is no height or weight on file to calculate BSA. There were no vitals taken for this visit. Physical Exam Vitals and nursing note reviewed. Constitutional: Appearance: Normal appearance. HENT: Head: Normocephalic and atraumatic. Mouth/Throat: Mouth: Mucous membranes are moist. Pharynx: Oropharynx is clear. Eyes: General: No scleral icterus. Extraocular Movements: Extraocular movements intact. Conjunctiva/sclera: Conjunctivae normal. Cardiovascular: Rate and Rhythm: Normal rate and regular rhythm. Pulses: Normal pulses. Heart sounds: Normal heart sounds. Pulmonary: Effort: Pulmonary effort is normal. No respiratory distress. Breath sounds: Normal breath sounds. Abdominal: General: There is no distension. Palpations: Abdomen is soft. There is no mass. Tenderness: There is no abdominal tenderness. Musculoskeletal: General: No swelling, tenderness or deformity. Normal range of motion. Cervical back: Normal range of motion and neck supple. Skin: General: Skin is warm and dry. Neurological: General: No focal deficit present. Mental Status: He is alert and oriented to person, place, and time. Motor: No weakness. Psychiatric: Mood and Affect: Mood normal. Behavior: Behavior normal. Thought Content: Thought content normal. Judgment: Judgment normal. Performance Status: Asymptomatic Assessment/Plan Assessment: 1. 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 patient has very high risk superficial venous thrombosis with distance within 3 cm from common femoral vein and prior hx of DVT his hypercoagulable work up revealed the presence of heterozygous factor V Leiden mutation he finished 3 months of xarelto and soon after that he had recurrence of SVT , he was 1 month after COVID infection will plan to continue xarelto 20 mg full dose x 6 months and then transition to ppx dose of 10 mg a day with fhx of pancreatic cancer, we checked Ca19-9 which was negative advised aged appropriate cancer screening, had a prior normal colonoscopy reportedly 3 yrs ago 06/04/23 Patient is in office with today. Patient reports right leg fatigue and numbness/tingling of thigh, has been going for at least 6 months, tends to be most noticeable standing for long periods or walking distances. Described by patient as lifeless and lacking blood flow. Denies any pain or swelling. Per patient varicose veins on bilateral legs. Recommendation of referral to vascular, pt is agreeable. Patient reports at times feeling SOB, regardless of activity. Describes episodes of chest tightness that limits patients ability to take a deep cleansing breath, denies any wheezing or chest pain. Resolves with rest. Discussed ordering chest imaging, patient is agreeable at this time. Consideration of pulmonology referral. Bleeding risk assessment is negative. CBC and CMP are stable. Remains on Xarelto 10mg, and is tolerating it well. Discussed continuation of 10mg Xarelto daily. Will continue to monitor labs with periodic bleeding risk assessments. 06/21/23- Returned to office to discuss imaging. Chest/Ab/Pelvis CT scan- noted mild fatty infiltration in the liver, otherwise unremarkable. Patient continues to report chest tightness, SOB and inability to get a deep cleansing breath. Discussed pulmonology referral for further evaluation and possible PFT's. Patient is agreeable, will send refer to [facility] [place]. Plan: 1. Referral to [facility] [place] 2. RTC in 6 months with labs prior JUSTYN Lim Referral to Pulmonary in [place]- they will call pt to schedule Pt saw Vascular 06/08- was to return as needed. 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 male. Subjective HPI History of Present Illness: ID Statement: EMMA FLORENCE is a 57 year old Male Chief Complaint: Evaluation for superficial venous thrombosis Interval History: Referred by Ted Henriquez PA-C Reason for referral: Superficial venous thrombosis HPI 55 year old man with hx of HL, former smoker and hx of prior DVT deemed to be provoked in the setting of shoulder surgery /sp xarelto who presented to the ER on 01/07/21 with pain and swelling in the right lower extremity. Venous dopplers showed acute superficial venous thrombosis of the accessory saphenous vein located within 3 cm of the common femoral vein. He was commenced on xarelto prophylactic dose. he woke with a sore muscle in his right thigh and by the evening it was red and hot and swollen, he monitored for few days, swelling decreased but he still felt a hard lump in his thigh when he decided to go to urgent care where his studies were done and he is now on xarelto 10 mg a day, after taking the Xarelto swelling and pain are much less he had recently no injuries or long travels his prior DVT was in the popliteal area around 2 years ago, on 03/29/19 he had left shoulder surgery with Dr. Andre, he was not immobilized, it happened few days after his surgery, he took xarelto x 90 days he never had a major bleeding, no hematochezia, melena or hematuria occasionally will have more bleeding from skin cuts had colonoscopy around 3 years ago which was negative Interval history - 06/04/23 Energy is good right leg gets tired and fatigues numbness and tingling in right thigh remains on Xarelto 10mg daily No abnormal bleeding or bruising issues Eating and drinking well Chest tightness- no pain Inability to get a cleansing breath or deep breath At times feels SOB regardless of activity Denies any cough No nausea, vomiting, diarrhea, or constipation No heamatochezia or melena No urinary issues, No hematuria denies dizziness and headaches No fever, chills or infections No lower extremity pain or swelling Over all is doing well Objective BSA: There is no height or weight on file to calculate BSA. There were no vitals taken for this visit. Physical Exam Vitals and nursing note reviewed. Constitutional: Appearance: Normal appearance. HENT: Head: Normocephalic and atraumatic. Nose: Nose normal. Mouth/Throat: Mouth: Mucous membranes are moist. Pharynx: Oropharynx is clear. Eyes: General: No scleral icterus. Extraocular Movements: Extraocular movements intact. Conjunctiva/sclera: Conjunctivae normal. Cardiovascular: Rate and Rhythm: Normal rate and regular rhythm. Pulses: Normal pulses. Heart sounds: Normal heart sounds. Pulmonary: Effort: Pulmonary effort is normal. No respiratory distress. Breath sounds: Normal breath sounds. No wheezing. Abdominal: General: There is no distension. Palpations: Abdomen is soft. There is no mass. Tenderness: There is no abdominal tenderness. Musculoskeletal: General: No swelling or deformity. Normal range of motion. Cervical back: Normal range of motion and neck supple. Skin: General: Skin is warm and dry. Neurological: General: No focal deficit present. Mental Status: He is alert and oriented to person, place, and time. Psychiatric: Mood and Affect: Mood normal. Behavior: Behavior normal. Thought Content: Thought content normal. Judgment: Judgment normal. Performance Status: Asymptomatic Assessment/Plan Assessment: 1. 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 patient has very high risk superficial venous thrombosis with distance within 3 cm from common femoral vein and prior hx of DVT his hypercoagulable work up revealed the presence of heterozygous factor V Leiden mutation he finished 3 months of xarelto and soon after that he had recurrence of SVT , he was 1 month after COVID infection will plan to continue xarelto 20 mg full dose x 6 months and then transition to ppx dose of 10 mg a day with fhx of pancreatic cancer, we checked Ca19-9 which was negative advised aged appropriate cancer screening, had a prior normal colonoscopy reportedly 3 yrs ago 06/04/23 Patient is in office with today. Patient reports right leg fatigue and numbness/tingling of thigh, has been going for at least 6 months, tends to be most noticeable standing for long periods or walking distances. Described by patient as lifeless and lacking blood flow. Denies any pain or swelling. Per patient varicose veins on bilateral legs. Recommendation of referral to vascular, pt is agreeable. Patient reports at times feeling SOB, regardless of activity. Describes episodes of chest tightness that limits patients ability to take a deep cleansing breath, denies any wheezing or chest pain. Resolves with rest. Discussed ordering chest imaging, patient is agreeable at this time. Consideration of pulmonology referral. Bleeding risk assessment is negative. CBC and CMP are stable. Remains on Xarelto 10mg, and is tolerating it well. Discussed continuation of 10mg Xarelto daily. Will continue to monitor labs with periodic bleeding risk assessments. Plan: 1. Referral to Vascular for evaluation 2. Order Chest CT scan w/contrast 3. RTC after imaging to discuss results JUSTYN Lim Pt setup for ct chest arrival- instructed on prep- sent to [facility] with Rashad Eagle CNP 06/24 at [address] Borja- for vericose veins, N/T in leg- referral placed ,office called Reviewed AVS with patient- patient verbalizes understanding documented in this encounter [facility] Work Phone: 06-04-2023 Instructions JUSTYN Lim - 06/04/2023 11:[address] Scan to be scheduled Referral to Vascular Continue on Xarelto 10mg daily RTC after imaging documented in this encounter [facility] Work Phone: 03-15-2023 History of Present illness Narrative EMMA FLORENCE is a 57-year-old male with seen in virtual follow-up in the [facility]. He was last seen on 03/15/2023, at which time he chose to pursue hereditary cancer testing due to his family history of pancreatic cancer. These results returned, and were negative/normal. They reviewed with the patient today. He will be mailed a copy of his results for his records.CANCER MEDICAL HISTORY (as previously noted):PERSONAL HISTORY OF CANCER? No.FAMILY HISTORY (as previously noted):-Patient, no history of cancer;-Father, pancreatic cancer 60, at 61;-Paternal aunt, lung cancer, smoker, at 61;-Mother, lung cancer at 69, former smoker, at 73;-Maternal aunt, esophageal cancer, at 68;-Maternal first cousin, son of aunt above, esophageal cancer, smoker, in his 50s;-Maternal uncle #1, lung cancer, smoker, at 67;-Maternal first cousin, daughter of uncle above, cancer NOS, ;-Maternal uncle #2, cancer NOS, at 66;-Maternal grandmother, cancer NOS versus benign liver disease, at 69;-Maternal grandfather, emphysema, lung cancer at 75, at 75.Mr. FLORENCE is of [place] (paternal) and [place] (maternal) descent. There is no known Ashkenazi Hoahaoism ancestry or consanguinity. [facility] [employer] Work Phone: 12-22-2022 History of Present illness Narrative Subjective Patient ID: Emma Florence is a 57 y.o. male who presents for Med Refill (Patient states needs refill on meds and would like labs done.). HPI Patient presents in general follow-up. Patient had labs done in November which showed resolution of dyslipidemia with statin and Zetia therapy. Patient also has A1c of 6 which is up from 5.8 on the previous draw. Patient continues with heme-onc for factor V/SVT and chronic Xarelto therapy. Patient has had improvement of back pain after starting stretching and core exercise. Patient has no acute complaints Review of Systems Constitutional: See HPI Cardiovascular: See HPI. Musculoskeletal: See HPI Integumentary: No rash. Neurologic: Alert and oriented X4, No numbness, No tingling. All other systems are negative Objective BP 128/77 (BP Location: Left arm, Patient Position: Sitting, BP Cuff Size: Adult) Pulse 62 Ht 1.803 m (5' 11 ) Wt 94.2 kg (207 lb 11.2 oz) BMI 28.97 kg/m Physical Exam General: Alert and oriented, No acute distress. Eye: Pupils are equal, round and reactive to light, Extraocular movements are intact, Normal conjunctiva. HENT: Normocephalic, Normal hearing, Oral mucosa is moist, No pharyngeal erythema, No sinus tenderness. Neck: Supple, Non-tender, No lymphadenopathy. Respiratory: Lungs are clear to auscultation, Respirations are non-labored, Breath sounds are equal Cardiovascular: Normal rate, Regular rhythm. Gastrointestinal: Non-distended. Musculoskeletal: Normal range of motion, Normal strength, No tenderness, No swelling, No deformity, Normal gait. Integumentary: Warm, Dry, Intact, No pallor, No rash. Neurologic: Alert, Oriented, Normal sensory, Normal motor function, No focal deficits, Cranial Nerves II-XII are grossly intact Psychiatric: Cooperative, Appropriate mood & affect. Assessment/Plan Factor V Leiden and SVT: Continue with heme-onc for now. Continue Xarelto as prescribed Prediabetes: Screening labs ordered for next year. Dyslipidemia: Continue Vytorin Problem List Items Addressed This Visit SVT (supraventricular tachycardia) (CMS/HCC) Relevant Medications rivaroxaban (Xarelto) 10 mg tablet Other Visit Diagnoses Factor 5 Leiden mutation, heterozygous (CMS/HCC) - Primary Relevant Medications rivaroxaban (Xarelto) 10 mg tablet Dyslipidemia Relevant Medications ezetimibe-simvastatin (Vytorin) 10-20 mg tablet Other Relevant Orders Basic Metabolic Panel CBC Hemoglobin A1C Hepatic Function Panel Lipid Panel TSH with reflex to Free T4 if abnormal Prediabetes Relevant Orders Basic Metabolic Panel CBC Hemoglobin A1C Hepatic Function Panel Lipid Panel TSH with reflex to Free T4 if abnormal Healthcare maintenance Relevant Orders Prostate Specific Antigen, Screen Final diagnoses: [D68.51] Factor 5 Leiden mutation, heterozygous (CMS/HCC) [E78.5] Dyslipidemia [R73.03] Prediabetes [I47.1] SVT (supraventricular tachycardia) (CMS/HCC) [Z00.00] Healthcare maintenance documented in this encounter [facility] Work Phone: 12-04-2022 Note Clinic Note: Education Assessment: Learning BarriersNo barriers TaughtPatient Primary Language of PatientEnglish Name of Brennan Learner & Relationshipwife present Clinic Visit: Topic(s): Clinic VisitFollow-up plan MethodVerbal, Teach-Back, Handout EvaluationTeaches back Nursing Note: Nursing NotePT SET UP FOR 6 MONTHS. RTC 06/04 AT 1130 WITH [facility]. LABS AT THE HOSP PRIOR TO APPT Electronic Signatures: Lyubov Andre) (Signed 04-Dec-2022 13:52) Authored: Education Assessment, Clinic Visit, Nursing Note Last Updated: 04-Dec-2022 13:52 by Lyubov Andre) [facility] 06-04-2022 Note Clinic Note: Education Assessment: Learning BarriersNo barriers TaughtPatient Primary Language of PatientEnglish Name of Brennan Learner & Relationshipwife present Clinic Visit: Topic(s): Clinic VisitFollow-up plan MethodVerbal, Teach-Back, Handout EvaluationTeaches back Nursing Note: Nursing Notept set up for 6 months with [facility]U. 12/03 at 2pm . 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 Patient states this is been going on for some time but has worsened over the past few days. Patient denies trauma, fall, direct blow, or other precipitating event prior to onset. Symptoms are positional exacerbated by sitting and alleviated by ambulation. Patient reports similar but less intense presentation on the left as well. [facility] Work Phone: documented in this encounter [facility] Work Phone: Evaluation note* Diagnosis SVT (supraventricular tachycardia)- Primary Other specified cardiac dysrhythmias Dyspnea, unspecified type Symptomatic varicose veins of both lower extremities documented in this encounter [facility] Work Phone: Evaluation note* Diagnosis SVT (supraventricular tachycardia) Other specified cardiac dysrhythmias Dyspnea, unspecified type documented in this encounter [facility] Work Phone: Evaluation note* Diagnosis SVT (supraventricular tachycardia) Other specified cardiac dysrhythmias Dyspnea, unspecified type documented in this encounter [facility] Work Phone: Evaluation note* Diagnosis SVT (supraventricular tachycardia) Other specified cardiac dysrhythmias Dyspnea, unspecified type Factor 5 Leiden mutation, heterozygous (CMS/HCC) documented in this encounter [facility] Work Phone: Evaluation note* Diagnosis Foreign body of skin of right hand- Primary documented in this encounter [facility] Work Phone: History of Present illness Narrative* Patient presents for suspected foreign body in the left palmar middle finger. Patient was working with wood several days prior to arrival and suffered a large splinter in the palmar aspect of the left middle finger over the proximal phalanx. Patient did attempt to remove the splinter but suspects there may be some remnant fragments in the wound. Patient reports recent onset of pain, swelling, anderythema around the puncture wound. No streaking or other constitutional signs and symptoms. * Patient also complains of left lateral elbow pain. Patient reports this has presented in the past and is associated with increased use. 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 Patient denies trauma, direct blow, or other known precipitating event. [facility] Work Phone: History of Present illness Narrative* Patient presents for evaluation of sinus pressure. Patient reports 1 week of progressively worsening maxillary sinus pain, nasal congestion, and headache. There is reported mild postnasal drip and ear pressure. No fever, cough, or other constitutional signs and symptoms. Symptoms have been refractory to rfsu-hbw-fzpdble medications. Patient is attributing symptoms to seasonal allergy flare. * Patient was seen and treated here 3 weeks ago for retained superficial foreign body of the left middle finger. Patient underwent incision and removal were only a small fragment was identified and removed. Patient reports no further swelling but there is palpable subcutaneous foreign body distal to the prior procedure. Area does not appear infected at this time. [facility] Work Phone: History of Present illness Narrative* Patient presents for evaluation of sinus pressure. Patient reports 1 week of progressively worsening maxillary sinus pain, nasal congestion, and headache. There is reported mild postnasal drip and ear pressure. No fever, cough, or other constitutional signs and symptoms. Symptoms have been refractory to hmmi-plc-iljsfxn medications. Patient is attributing symptoms to seasonal allergy flare. * Patient was seen and treated here 3 weeks ago for retained superficial foreign body of the left middle finger. Patient underwent incision and removal were only a small fragment was identified and removed. Patient reports no further swelling but there is palpable subcutaneous foreign body distal to the prior procedure. Area does not appear infected at this time. -[facility] Work Phone: History of Present illness Narrative* EMMA FLORENCE is a 57 year-old male with a [] history of breast cancer. He was referred to the Cancer Genetics Clinic at [facility] by his healthcare provider []. Mr. FLORENCE is interested ingenetic testing to clarify his personal risks for cancer, as well as the risks to his family members. * CANCER MEDICAL HISTORY: * PERSONAL HISTORY OF CANCER? No. * OTHER HEALTH ISSUES: Hx DVTs, Factor V Leiden deficiency, high cholesterol, arthritis, hx rotator cuff surgery. * CANCER SCREENING HISTORY: * Prostate cancer screening: Yes, per PCP. * Colonoscopy: Yes, x1 at age 52. No polyps. Asked to return in 10 years. * EGD: No. * Dermatology: Yes. Hx sebaceous nevus removed from head. * Other cancer screening: No. * FAMILY HISTORY: * A ____-generation pedigree was obtained and was significant for the following: * Mr. FLORENCE is of ____ descent. There is no known Ashkenazi Hoahaoism ancestry or consanguinity. [place] [address] Work Phone: Reason for referral (narrative)* Consultation (Routine) - Authorized Specialty Diagnoses / Procedures Referred By Edgar groves Referred To Contact Primary Care Procedures Follow Up In Primary Care Ted Henriquez PA-C [address] [facility] Physician [address] [place] [address] Referral ID Status Reason Start Date Expiration Date V isits Requested Visits Authorized [id number] Authorized 12/22/2022 06/20/2023 1 1 [facility] Work Phone: Reason for referral (narrative)* Consultation (Routine) - Authorized Specialty Diagnoses / Procedures Referred By Contac t Referred To Contact Diagnoses Symptomatic varicose veins of both lower extremities Rashad Eagle APRN-CNP [address] [place] [address] Dipesh Benites MD [address] [facility] [address] [place] [id number] Referral ID Status Reason Start Date Expiration Date Visits Requested Visits Authorized [id number] Authorized Specialty Services Required 3 06/03/2024 1 1 * Imaging (Routine) - Authorized Specialty Diagnoses / Procedures Referred By Edgar t Referred To Contact Radiology Diagnoses SVT (supraventricular tachycardia) Dyspnea, unspecified type Procedures CT chest w IV contrast Rashad Eagle APRN-CNP [address] [place] [address] Referral ID Status Reason Start Date Expiration Date Visits Requested Visits Authorized [id number] Authorized Perform Procedure 3 06/03/2024 1 1 [facility] Work Phone: History of Present Illness * Durga Andre MD - 06/28/2018 4:51 PM EST Dictation on: 06/28/2018 4:55 PM by: DURGA ANDRE [[id number]] in this encounter* Durga Andre MD - 12/13/2018 5:29 PM EDT Dictation on: 12/13/2018 5:30 PM by: DURGA ANDRE [[id number]] documented in this encounter* Durga Andre MD - 01/24/2019 3:53 PM EDT Dictation on: 01/24/2019 3:55 PM by: DURGA ANDRE [[id number]] documented in this encounter* Laura Whitlock RN - 03/08/2019 8:22 AM EDT EKG completed for pre op documented in this encounter* Durga Andre MD - 05/11/2019 12:10 PM EDT Dictation on: 05/11/2019 12:11 PM by: DURGA ANDRE [[id number]] documented in this encounter* Rm Ramirez PTA - 06/14/2019 8:30 AM EST [facility] OUTPATIENT REHABILITATION DAILY TREATMENT NOTE Today's Date 06/14/2019 Patient Name: Emma Florence Date of : 1965 Current Visit #: Authorized Visits: Case Name: Therapy S/P rotator cuff repair History: Pre-Treatment Pain Scale: 2 Symptoms: gradually improved Functional Diagnosis: 1. S/P rotator cuff repair Clinical Information: Subjective: Reports he just saw the Yesterday and he's pleased with his progress. He can returnto work with 20# restriction and NO overhead lifting. Start strengthening at PT. Objective PROM flexion 170 degrees. End range tightness with passive ER. No pain increase with light shoulder exercises. Treatments: Physical Therapy Exercise Log - 06/14/19 1105 OTHER Notes Rm 09/27 8:30-9:10 Vitals 20# restriction - 06/14/19 Therapeutic Exercise ([id number]) Intervention Supine SH flexion x10 Parameters S/L SH ABD (A) Intervention S/L SH ER 2# 2x10 Parameters Supine scapular retraction x20 Intervention Standing SH rows GTT x20 Parameters Standing SH Ext GTT x20 Intervention SA punch ups 3# x20 Parameters sarah 5' Intervention walkouts ER/IR GTT x20 each Manual Therapy (44459) Intervention STM R bicep/B UT/Rdeltoid 6' Parameters PROM flexion/abd/ER 6' PT Treatment Times Therex Total Time 30 Manual Therapy Total Time 12 Direct Treatment Time 42 Total Treatment Time 42 Skilled Intervention demonstrated by modifications of treatment per exercise log including increased intensity and safety interventions per exercise log. Progress towards goals as expected. Plan for Next Visit: Treatment Visit with focus on strengthening Rm Ramirez PTA STATE LICENSE, [id number] documented in this encounter* Rm Ramirez PTA - 06/19/2019 3:15 PM EST [facility] OUT[facility]IENT REHABILITATION DAILY TREATMENT NOTE Today's Date 06/19/2019 Patient Name: Emma Florence Date of : 1965 Current Visit #: Authorized Visits: Case Name: Therapy S/P rotator cuff repair History: Pre-Treatment Pain Scale: 3 Symptoms: gradually improved Functional Diagnosis: 1. 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 His arm is doing good but achy from the long day. Objective Good tolerance to exercises without pain increase. ER strength 4-/5. Treatments: Physical Therapy Exercise Log - 06/19/19 1624 OTHER Notes Rm 10/28 3:10-3:50 Vitals 20# restriction - 06/14/19 Therapeutic Exercise (54493) Intervention Supine SH flexion x10 Parameters S/L SH ABD (A) Intervention S/L SH ER 2# 2x10 Parameters Supine scapular retraction x20 Intervention Standing SH rows GTT x20 Parameters Standing SH Ext GTT x20 Intervention SA punch ups 3# x20 Parameters sarah 5' Intervention IR GTT x20 each Parameters ER YTT x20 Intervention UEB 6' fwd/back Manual Therapy (39537) Intervention STM R bicep/B UT/Rdeltoid 5' Parameters PROM flexion/abd/ER 5' PT Treatment Times Therex Total Time 25 Manual Therapy Total Time 10 Direct Treatment Time 35 Total Treatment Time 35 Skilled Intervention demonstrated by modifications of treatment per exercise log including increased intensity and safety interventions per exercise log. Progress towards goals as expected. Plan for Next Visit: Treatment Visit with focus on ROM and strength Rm Ramirez PTA STATE LICENSE, [id number] documented in this encounter* Rm Ramirez PTA - 06/21/2019 8:30 AM EST [facility] OUT[facility]IENT REHABILITATION DAILY TREATMENT NOTE Today's Date 06/21/2019 Patient Name: Emma Florence Date of : 1965 Current Visit #: Authorized Visits: Case Name: Therapy S/P rotator cuff repair History: Pre-Treatment Pain Scale: 1 Symptoms: gradually improved Functional Diagnosis: 1. S/P rotator cuff repair Clinical Information: Subjective: Reports he did a lot of cleaning at work yesterday and his shoulder felt very good and slept very good last night. Objective Tightness with end range of passive ER and flexion. Flexion strength 4-/5. Treatments: Physical Therapy Exercise Log - 06/21/19 0912 OTHER Notes Rm 11/27 8:25-9:00 Vitals 20# restriction - 06/14/19 Therapeutic Exercise (02338) Intervention Supine SH flexion x10 Parameters S/L SH ABD 1# x20 Intervention S/L SH ER 2# 2x10 Intervention Standing SH rows GTT x20 Parameters Standing SH Ext GTT x20 Intervention SA punch ups 3# x20 Parameters sarah 5' Intervention IR GTT x20 each Parameters ER YTT x20 Intervention UEB 6' fwd/back Parameters alphabet on wall x1 Manual Therapy (56447) Intervention STM R bicep/B UT/Rdeltoid 5' Parameters PROM flexion/abd/ER 5' PT Treatment Times Therex Total Time 25 Manual Therapy Total Time 10 Direct Treatment Time 35 Total Treatment Time 35 Skilled Intervention demonstrated by modifications of treatment per exercise log including increased intensity and safety interventions per exercise log. Progress towards goals as expected. Plan for Next Visit: Treatment Visit with focus on ROM and strength Rm Ramirez PTA STATE LICENSE, [id number] documented in this encounter* Yuniel Malik PTA - 06/27/2019 4:45 PM EST [facility] REHABIL[facility]ATION DAILY TREATMENT NOTE Today's Date 06/27/2019 Patient Name: Emma Florence Date of : 1965 Current Visit #: 3 Authorized Visits: 12 Case Name: Therapy S/P rotator cuff repair History: Pre-Treatment Pain Scale: 2 Symptoms: stabilized Functional Diagnosis: 1. S/P rotator cuff repair Clinical Information: Subjective: Pt reports he was stretching and had some stiffness yesterday Objective Began with AAROM then completed therex PROM and STM to decrease pain Treatments: Physical Therapy Exercise Log - 06/27/19 1645 OTHER Notes Rm 12/28 [id number] Vitals 20# restriction - 06/14/19 Therapeutic Exercise (50519) Intervention Supine SH flexion x10 Parameters S/L SH ABD 1# x20 Intervention S/L SH ER 2# 2x10 Intervention Standing SH rows GTT x20 Parameters Standing SH Ext GTT x20 Intervention SA punch ups 3# x20 Parameters sarah 5' Intervention IR GTT x20 each Parameters ER YTT x20 Intervention UEB 6' fwd/back Parameters alphabet on wall x1 Manual Therapy (66662) Intervention STM R bicep/B UT/Rdeltoid 5' Parameters PROM flexion/abd/ER 5' PT Treatment Times Therex Total Time 30 Manual Therapy Total Time 10 Direct Treatment Time 40 Total Treatment Time 45 Goals: Physical Therapy Ortho Goals: 1. Patient reports their primary goal is to be able to have full ROM and sleep through the night. 2. Patient will safely, correctly, and independently demonstrate the ability to perform a progressive HEP to achieve maximal rehabilitation potential and prevent this condition from recurring. 3. 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 4. Patient will demonstrate increased deltoid/UT muscle mobilization in order to be able to sleep through the night. 5. Patient will demonstrate 5/5 Sh flexion/abduction strength in order to be able to carry boxes atwork. IE date: 06/05/2019 Progress report due: 07/17/19 Recert due: visit # 12 Patient Education: Verbal HEP with patient verbalized understanding. Post-Treatment Pain Scale: 1 Assessment: Patient had an expected response to treatment. Pt had decreased sx after PROM Skilled Intervention demonstrated by modifications of treatment per exercise log including increased mobility and assessment of patient's response and safety interventions per exercise log. Progress towards goals as expected. Plan for Next Visit: Treatment Visit with focus on increasing strength and progressing ROM Yuniel Malik PTA STATE LICENSE, [id number] documented in this encounter* Yuniel Malik, COMPENSATION ADVISOR - 06/30/2019 4:00 PM EST [facility] OUTPATIENT REHABILITATION DAILY TREATMENT NOTE Today's Date 06/30/2019 Patient Name: Emma Florence Date of : 1965 Current Visit #: 4 Authorized Visits: 12 Case Name: Therapy S/P rotator cuff repair History: Pre-Treatment Pain Scale: 2 Symptoms: stabilized Functional Diagnosis: 1. S/P rotator cuff repair Clinical Information: Subjective: Pt reports avg pain coming in today, he is still sleeping poorly and about 4 hours at most Objective Increased resistance with UBE to progress UE endurance Reviewed using an extra pillow to improve sleep positioning Treatments: Physical Therapy Exercise Log - 06/30/19 1652 OTHER Notes Rm 01/27 [id number] Vitals 20# restriction - 06/14/19 Therapeutic Exercise (00327) Intervention Supine SH flexion x10 Parameters S/L SH ABD 1# x20 Intervention S/L SH ER 2# 2x10 Intervention Standing SH rows GTT x20 Parameters Standing SH Ext GTT x20 Intervention SA punch ups 3# x20 Parameters sarah 5' Intervention IR LINA x20 each Parameters ER YOTT x20 Intervention UEB L2.5 6' fwd/back Parameters alphabet on wall 1lb x1 Manual Therapy (68641) Intervention STM R bicep/B UT/Rdeltoid 5' Parameters PROM flexion/abd/ER 5' PT Treatment Times Therex Total Time 30 Manual Therapy Total Time 10 Direct Treatment Time 40 Total Treatment Time 45 Goals: Physical Therapy Ortho Goals: 1. Patient reports their primary goal is to be able to have full ROM and sleep through the night. 2. Patient will safely, correctly, and independently demonstrate the ability to perform a progressive HEP to achieve maximal rehabilitation potential and prevent this condition from recurring. 3. 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 4. Patient will demonstrate increased deltoid/UT muscle mobilization in order to be able to sleep through the night. 5. Patient will demonstrate 5/5 Sh flexion/abduction strength in order to be able to carry boxes atwork. IE date: 06/05/2019 Progress report due: 07/17/19 Recert due: visit # 12 Patient Education: Verbal HEP with patient verbalized understanding. Post-Treatment Pain Scale: 2 Assessment: Patient had an expected response to treatment. Pt cont to make progress with ROM and has decreased sx's after AROM Skilled Intervention demonstrated by modifications of treatment per exercise log including increased mobility, increased volume and assessment of patient's response and safety interventions per exercise log. Progress towards goals as expected. Plan for Next Visit: Treatment Visit with focus on progress as tolerated Yuniel Malik PTA STATE LICENSE, [id number] documented in this encounter* Yuniel Malik PTA - 07/04/2019 8:30 AM EST [facility] REHABIL[facility]ATION DAILY TREATMENT NOTE Today's Date 07/04/2019 Patient Name: Emma Florence Date of : 1965 Current Visit #: 5 Authorized Visits: 12 Case Name: Therapy S/P rotator cuff repair History: Pre-Treatment Pain Scale: 1 Symptoms: stabilized Functional Diagnosis: 1. S/P rotator cuff repair Clinical Information: Subjective: Pt reports he has improved sleeping tolerance since using pillow for arm support Objective Increased wt with wall alphabet Added wt to supine flex Treatments: Physical Therapy Exercise Log - 07/04/19 0832 OTHER Notes Rm 02/27 [id number] Vitals 20# restriction - 06/14/19 Therapeutic Exercise (57057) Intervention Supine SH flexion 1lb x10 Parameters S/L SH ABD 1# x20 Intervention S/L SH ER 2# 2x10 Intervention Standing SH rows GTT x20 Parameters Standing SH Ext GTT x20 Intervention Standing SA 3 way reach half green loop 2x5 Intervention SA punch ups 3# x20 Parameters sarah 5' Intervention IR LINA x20 each Parameters ER YOTT x20 Intervention UEB L2.5 6' fwd/back Parameters alphabet on wall 2lb x1 Manual Therapy (25084) Intervention STM R bicep/B UT/Rdeltoid 5' Parameters PROM flexion/abd/ER 5' PT Treatment Times Therex Total Time 40 Direct Treatment Time 40 Total Treatment Time 40 Goals: Physical Therapy Ortho Goals: 1. Patient reports their primary goal is to be able to have full ROM and sleep through the night. 2. Patient will safely, correctly, and independently demonstrate the ability to perform a progressive HEP to achieve maximal rehabilitation potential and prevent this condition from recurring. 3. 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 4. Patient will demonstrate increased deltoid/UT muscle mobilization in order to be able to sleep through the night. 5. Patient will demonstrate 5/5 Sh flexion/abduction strength in order to be able to carry boxes atwork. IE date: 06/05/2019 Progress report due: 07/17/19 Recert due: visit # 12 Patient Education: Verbal HEP with patient verbalized understanding. Post-Treatment Pain Scale: 1 Assessment: Patient had an expected response to treatment. Pt had decreased sx's after session and reports increased strength and ROM since IE Skilled Intervention demonstrated by modifications of treatment per exercise log including increased volume and assessment of patient's response and safety interventions per exercise log. Progress towards goals as expected. Plan for Next Visit: Treatment Visit with focus on progress as tolerated Yuniel Malik PTA STATE LICENSE, [id number] documented in this encounter* Rm Ramirez PTA - 07/07/2019 4:00 PM EST [facility] REHABIL[facility]ATION DAILY TREATMENT NOTE Today's Date 07/07/2019 Patient Name: Emma Florence Date of : 1965 Current Visit #: 6 Authorized Visits: 12 Case Name: Therapy S/P rotator cuff repair History: Pre-Treatment Pain Scale: 3 Symptoms: gradually improved Functional Diagnosis: 1. S/P rotator cuff repair Clinical Information: Subjective: reports his shoulder is progressing with strength Objective Initiated resisted PRE's in prone position. ER strength 4-/5. Treatments: Physical Therapy Exercise Log - 07/07/19 1634 OTHER Notes rm 03/30 3:55-4:30 Vitals 20# restriction - 06/14/19 Therapeutic Exercise (54105) Intervention Supine SH flexion 1lb x10 Parameters S/L SH ABD 1# x20 Intervention S/L SH ER 2# 2x10 Intervention Standing SH rows GTT x20 Parameters Standing SH Ext GTT x20 Intervention Standing SA 3 way reach half green loop 2x5 Intervention SA punch ups 3# x20 Parameters sarah 5' Intervention IR LINA x20 each Parameters ER YOTT x20 Intervention UEB L2.5 6' fwd/back Parameters alphabet on wall 2lb x1 Intervention prone extension 2# x10 Parameters prone scaption 0# x20 PT Treatment Times Therex Total Time 35 Manual Therapy Total Time 5 Direct Treatment Time 40 Total Treatment Time 40 n demonstrated by modifications of treatment per exercise log including increased intensity and safety interventions per exercise log. Progress towards goals as expected. Plan for Next Visit: Treatment Visit with focus on strength and ROM Rm Ramirez PTA STATE LICENSE, [id number] documented in this encounter* Rm Ramirez PTA - 07/14/2019 2:30 PM EST [facility] OUTPATIENT REHABILITATION DAILY TREATMENT NOTE Today's Date 07/14/2019 Patient Name: Emma Florence Date of : 1965 Current Visit #: 7 Authorized Visits: 12 Case Name: Therapy S/P rotator cuff repair History: Pre-Treatment Pain Scale: 1 Symptoms: gradually improved Functional Diagnosis: 1. S/P rotator cuff repair Clinical Information: Subjective: reports he's improving with ROM but still weak with strength. Objective Good understanding of s/l ER. Continues with weakness with prone extension and scaption. Treatments: Physical Therapy Exercise Log - 07/14/19 1542 OTHER Notes rm 03/30 3:55-4:30 Vitals 20# restriction - 06/14/19 Therapeutic Exercise (63445) Intervention Supine SH flexion 1lb x10 Parameters S/L SH ABD 1# x20 Intervention S/L SH ER 2# 2x10 Intervention Standing SH rows GTT x20 Parameters Standing SH Ext GTT x20 Intervention Standing SA 3 way reach half green loop 2x5 Intervention SA punch ups 3# x20 Parameters sarah 5' Intervention IR LINA x20 each Parameters ER YOTT x20 Intervention UEB L2.5 6' fwd/back Parameters alphabet on wall 2lb x1 Intervention prone extension 2# x10 Parameters prone scaption 0# x20 PT Treatment Times Therex Total Time 35 Direct Treatment Time 35 Total Treatment Time 35 Progress towards goals as expected. Plan for Next Visit: Treatment Visit with focus on strengthening Rm Ramirez PTA STATE LICENSE, [id number] documented in this encounter* Durga Andre MD - 07/18/2019 10:22 AM EST Dictation on: 07/18/2019 10:22 AM by: DURGA ANDRE [[email or web address]] documented in this encounter* Durga Andre MD - 10/17/2019 3:54 PM EDT Dictation on: 10/17/2019 3:55 PM by: DURGA ANDRE [[id number]] documented in this encounter* Rm Ramirez PTA - 06/12/2019 10:00 AM EST [facility] OUTPATIENT REHABILITATION DAILY TREATMENT NOTE Today's Date 06/12/2019 Patient Name: Emma Florence Date of : 1965 Current Visit #: 2 Authorized Visits: 2 Case Name: No linked episodes History: Pre-Treatment Pain Scale: 2 Symptoms: gradually improved Functional Diagnosis: No diagnosis found. Clinical Information: Subjective: Reports his shoulder is doing pretty good. He sees Dr. Andre tomorrow. 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 Objective AAROM flexion with cane 165 degrees PROM ER 45 degrees. Treatments: Physical Therapy Exercise Log - 06/12/19 1217 OTHER Notes Rm 08/30 10:00-10:35 Therapeutic Exercise (74456) Intervention Supine SH flexion x10 Parameters S/L SH ABD (A) Intervention S/L SH ER (A) Parameters Supine scapular retraction x20 Intervention Standing SH rows (A) Parameters Standing SH Ext (A) Intervention cane flexion x10 Parameters cane ER x10 Manual Therapy (06073) Intervention STM R bicep/B UT/Rdeltoid 6' Parameters PROM flexion/abd/ER PT Treatment Times Therex Total Time 25 Manual Therapy Total Time 10 Direct Treatment Time 35 Total Treatment Time 35 Skilled Intervention demonstrated by modifications of treatment per exercise log including increased intensity and safety interventions per exercise log. Progress towards goals as expected. Plan for Next Visit: Treatment Visit with focus on ROM Rm Ramirez PTA STATE LICENSE, [id number] documented in this encounter* Marina Arevalo LPN - 03/31/2019 9:42 AM EDT error documented in this encounter* Durga Andre MD - 01/04/2019 5:00 PM EDT Dictation on: 01/04/2019 5:01 PM by: DURGA ANDRE [[id number]] documented in this encounter Assessments Diagnosis Impingement syndrome of righ t shoulder - Primary Diagnosis Impingement syndrome of right shoulder- Primary Diagnosis Impingement syndrome of right shoulder Diagnosis Traumatic tear of right rotator cuff, unspecified tear extent, subsequent encounter- Primary Impingement syndrome of right shoulder Diagnosis Pre-op testing Unspecified pre-operative examination Right rotator cuff tear Diagnosis S/P rotator cuff repair- Primary Diagnosis S/P rotator cuff repair Diagnosis S/P rotator cuff repair Diagnosis Leg pain, bilateral Pain in soft tissues of limb Diagnosis Impingement syndrome of right shoulder- Primary Traumatic tear of right rotator cuff, unspecified tear extent, subsequent encounter Advance Directives No Advanced Directives Records FoundDocuments on File Type Date Recorded Patient Utilization Review Nurse Expl anation Advance Directives and Living Will Documents on File Type Date Recorded Patient Utilization Review Nurse Expl anation Advance Directives and Livin g Will 01/18/2019 9:59 AM Documents on File Type Date Recorded Patient Utilization Review Nurse Expl anation Advance Directives and Livin g Will 01/18/2019 9:59 AM Documents on File Type Date Recorded Patient Utilization Review Nurse Expl anation Advance Directives and Livin g Will 02/27/2020 12:00 AM Documents on File Type Date Recorded Patient Utilization Review Nurse Expl anation Advance Directives and Living Will Reason for Referral Status Reason Specialty Diagnoses / Procedures Referre d By Contact Referred To Contact Closed Radiology Diagnoses Impingement syndrome of right shoulder Procedures MR Shoulder Right Without Contrast Durga Andre MD [address] [place] [address] Status Reason Specialty Diagnoses / Procedures Referred By Contact Referred To Contact Pending Review Radiology Diagnoses Impingement syndrome of right shoulder Procedures MR Shoulder Right Without Contrast Durga Andre MD [address] [place] [id number] Specialty Diagnoses / Procedures Referred By Edgar groves Referred To Contact Radiology Diagnoses SVT (supraventricular tachycardia) Dyspnea, unspecified type Procedures CT chest w IV contrast Rashad Eagle, MANAGER AGENCY-DIE CASTING MACHINE SETTER [address] [place] [address] Referral ID Status Reason Start Date Expiration Date Visits Requested Visits Authorized [id number] Authorized Perform Procedure 3 06/03/2024 1 1 Summary Purpose Family History No Family History Records FoundUnknown Family Member Name Dates Details Family history of cardiac di sorder: Mother, Father(V17.49, Z82.49) Status:Active Family history of malignant neoplasm: Mother, Father(V16.9, Z80.9) Status:Active Unknown Family Member Name Dates Details Family history of cardiac di sorder: Mother, Father(V17.49, Z82.49) Status:Active Family history of malignant neoplasm: Mother, Father(V16.9, Z80.9) Status:Active Unknown Family Member Name Dates Details Family history of cardiac di sorder: Mother, Father(V17.49, Z82.49) Status:Active Family history of malignant neoplasm: Mother, Father(V16.9, Z80.9) Status:Active Unknown Family Member Name Dates Details Family history of cardiac di sorder: Mother, Father(V17.49, Z82.49) Status:Active Family history of malignant neoplasm: Mother, Father(V16.9, Z80.9) Status:Active Unknown Family Member Name Dates Details Family history of malignant neoplasm: Mother, Father(V16.9, Z80.9) Status:Active Family history of cardiac di sorder: Mother, Father(V17.49, Z82.49) Status:Active Unknown Family Member Name Dates Details Family history of cardiac di sorder: Mother, Father(V17.49, Z82.49) Status:Active Family history of malignant neoplasm: Mother, Father(V16.9, Z80.9) Status:Active Unknown Family Member Name Dates Details Family history of cardiac di sorder: Mother, Father(V17.49, Z82.49) Status:Active Family history of malignant neoplasm: Mother, Father(V16.9, Z80.9) Status:Active Unknown Family Member Name Dates Details Family history of cardiac di sorder: Mother, Father(V17.49, Z82.49) Status:Active Family history of malignant neoplasm: Mother, Father(V16.9, Z80.9) Status:Active Unknown Family Member Name Dates Details Family history of malignant neoplasm: Mother, Father(V16.9, Z80.9) Status:Active Family history of cardiac di sorder: Mother, Father(V17.49, Z82.49) Status:Active Unknown Family Member Name Dates Details Family history of cardiac di sorder: Mother, Father(V17.49, Z82.49) Status:Active Family history of malignant neoplasm: Mother, Father(V16.9, Z80.9) Status:Active Unknown Family Member Name Dates Details Family history of cardiac di sorder: Mother, Father(V17.49, Z82.49) Status:Active Family history of malignant neoplasm: Mother, Father(V16.9, Z80.9) Status:Active Family history of pancreatic cancer: Father(V16.0, Z80.0) Status:Active Discharge Instructions * Instructions* Perla Dacosta, DIE CASTING MACHINE SETTER - 02/27/2020 Increase your clear fluids. Gentle stretching. Follow-up with your PCP as directed. If any new or worsening symptoms may return to the emergency department anytime. * Attachments The following attachments cannot be sent through Care Everywhere. * Leg Pain (Venezuelan) documented in this encounter Chief Complaint * Patient here today for left middle finger swelling with redness. Patient states he got a splinter in the finger on Wednesday and not to sure if he got it all out. Patient has used honey with a band-aid. * Patient also mentions right elbow discomfort with ROM. No known injury per patient x several years.States recently it has increased & has been using it more building an addition at his home. * Pt does not need Rx refills at this time. * Patient is here today to be seen for ? URI. * Patient is having sinus pressure & sinus drainage x 3 days. * Patient states he has been taking OTC Acetaminophen and last taken this morning. * Patient offers no other complaints at this time. * Patient is here today to be seen for ? URI. * Patient is having sinus pressure & sinus drainage x 3 days. * Patient states he has been taking OTC Acetaminophen and last taken this morning. * Patient offers no other complaints at this time. * Patient here today to be seen for right thigh discomfort x 4 months, no known injury with increasedaggravation x 1 month. Patients discomfort is increased with over usage or if on it for long periods of time. Patient describes the discomfort like a numbness burning sensation. * Patient states has not tried using the Voltaren gel. Accompanied by Amalia Florence.* A telephone visit (audio only) between the patient (at the originating site) and the provider (at the distant site) was utilized to provide this telehealth service. * Verbal consent was requested and obtained from EMMA FLORENCE on this date, 04/07/2023 02:15 PM , fora telehealth visit. Additional Source Comments Reason for Visit (unrecogniz ed section and content) Status Reason Specialty Diagnoses / Procedures Referre d By Contact Referred To Contact Closed Radiology Diagnoses Impingement syndrome of right shoulder Procedures MR Shoulder Right Without Contrast Durga Andre MD [address] [place] [address] Reason Comments Follow-up MRI results Reason Comments Pre-op Exam EKG Status Reason Specialty Diagnoses / Procedures Referred By Contact Referred To Contact Closed Cardiology Diagnoses Pre-op testing Right rotator cuff tear Procedures ECG 12 Lead Durga Andre MD [address] [place] [id number] Reason Comments Follow-up Reason Comments Physical Therapy Status Reason Specialty Diagnoses / Procedures Referred By Contact Referred To Contact Authorized Patient Preference Physical Therapy / Rehabilitation Diagnoses S/P rotator cuff repair Durga Andre MD [address] [place] [address] [phone] Reason Comments Leg Pain Status Reason Specialty Diagnoses / Procedures Referred By Contact Referred To Contact Closed Patient Preference Physical Therapy / Rehabilitation Diagnoses S/P rotator cuff repair Durga Andre MD [address] [facility] [place] [address] Rehab [facility] [address] [place] [address] [place] [address] Reason Comments Follow-up Reason Comments Med Refill Patient states needs refill on meds and would like labs done. Reason Comments superficial vein thrombosis Specialty Diagnoses / Procedures Referred By Contac t Referred To Contact Diagnoses Supraventricular tachycardia, unspecified Dyspnea, unspecified Procedures CHG DIAGNOSTIC COMPUTED TOMOGRAPHY THORAX W/CONTRAST [facility] [address] [place] [address] Referral ID Status Reason Start Date Expiration Date Visits Re quested Visits Authorized [id number] 1 1 Reason Comments superficial venous thrombosis Reason Comments Foreign Body in Skin Patient had splinte r in right palm x 2 weeks, states took splinter out and now having swelling and discomfort. (unrecognized sect ion and content) No Status Records FoundNo Status Records FoundNo Status Records FoundNo Status Records FoundNo Status Records FoundNo Status Records FoundNo Status Records FoundNo Status Records FoundNo Status Records FoundNo Status Records Found INFORMATION SOURCE (unrecogn ized section and content) DATE CREATED AUTHOR AUTHOR'S ORGANIZ ATION 10/17/2019 [facility] DATE CREATED AUTHOR AUTHOR'S ORGANIZ ATION 02/29/2020 [facility] DATE CREATED AUTHOR AUTHOR'S ORGANIZ ATION 12/02/2022 [facility] DATE CREATED AUTHOR AUTHOR'S ORGANIZ ATION 03/04/2023 [facility] DATE CREATED AUTHOR AUTHOR'S ORGANIZ ATION 03/18/2023 [employer] DATE CREATED AUTHOR AUTHOR'S ORGANIZ ATION 2023 [facility] DATE CREATED AUTHOR AUTHOR'S ORGANIZ ATION 06/06/2023 [facility] DATE CREATED AUTHOR AUTHOR'S ORGANIZ ATION 07/02/2023 [facility] DATE CREATED AUTHOR AUTHOR'S ORGANIZ ATION 08/19/2023 [facility] Pedro Salvador LPN - 02/27/2020 3:55 PM EDPerla Jennings, BLU - 02/27/2020 2:23 PM EDTAlex العلي RN - 02/27/2020 2:19 PM EDT ED Notes (unrecognized secti on and content) Discharge instructions reviewed by this PRODUCT EXAMINER. Pt verbalizes understanding and denies any further questions at this time. Pt ambulatory to lobby without difficulty. Pt shows no s/s of distress at this time. [facility] ED AISHA Note: NAME: Emma Florence 54 y.o. CSN: [id number] PCP: Gladys Wilson MD History: Chief Complaint: Leg Pain HPI: The history was obtained from the patient. Emma is a 54 y.o. male who presents with a chief complaint of Leg Pain. Patient reports he has noticed left calf pain intermittently for a few days and a twinge of a cramp to his right calf. Patient reports single episode of DVT following a shoulder surgery. He denies chest pain, shortness of breath, fever chills, urinary or bowel symptoms, injury or any other associated symptoms. He has not treated. Xarelto was DC'd when DVT resolved. PMHx: Past Medical History: Diagnosis Date Deep vein thrombosis (HCC) High cholesterol PMSx: Past Surgical History: Procedure Laterality Date ROTATOR CUFF REPAIR Right 03/29/2019 FAM. Hx: History reviewed. No pertinent family history. SOC. Hx: Social History Socioeconomic History Marital status: Spouse name: Not on file Number of children: Not on file Years of education: Not on file Highest education level: Not on file Occupational History Not on file Social Needs Financial resource strain: Not on file Food insecurity Worry: Not on file Inability: Not on file Transportation needs Medical: Not on file Non-medical: Not on file Tobacco Use Smoking status: Never Smoker Smokeless tobacco: Never Used Substance and Sexual Activity Alcohol use: No Drug use: Not on file Sexual activity: Not on file Lifestyle Physical activity Days per week: Not on file Minutes per session: Not on file Stress: Not on file Relationships Social connections Talks on phone: Not on file Gets together: Not on file Attends rastafari service: Not on file Active member of club or organization: Not on file Attends meetings of clubs or organizations: Not on file Relationship status: Not on file Other Topics Concern Not on file Social History Narrative Not on file MEDs: Previous Medications Medication Sig ezetimibe/simvastatin (VYTORIN 10-20 ORAL) Take by mouth . ALL: No Known Allergies ROS: Review of Systems Positives and pertinent negatives as per HPI. All other systems were reviewed and are negative. Physical Exam: Physical Exam Vitals signs and nursing note reviewed. Constitutional: General: He is not in acute distress. Appearance: Normal appearance. He is well-developed. He is not ill-appearing. HENT: Head: Normocephalic and atraumatic. Nose: Nose normal. Eyes: General: No scleral icterus. Conjunctiva/sclera: Conjunctivae normal. Neck: Musculoskeletal: Normal range of motion and neck supple. Cardiovascular: Rate and Rhythm: Normal rate and regular rhythm. Pulses: Popliteal pulses are 2+ on the right side and 2+ on the left side. Dorsalis pedis pulses are 2+ on the right side and 2+ on the left side. Posterior tibial pulses are 2+ on the right side and 2+ on the left side. Heart sounds: No murmur. Pulmonary: Effort: Pulmonary effort is normal. No respiratory distress. Breath sounds: Normal breath sounds. Musculoskeletal: Right lower leg: He exhibits no tenderness and no swelling. No edema. Left lower leg: He exhibits no tenderness and no swelling. No edema. Skin: General: Skin is warm and dry. Findings: No rash. Neurological: General: No focal deficit present. Mental Status: He is alert and oriented to person, place, and time. Psychiatric: Behavior: Behavior normal. Laboratory & Radiological Imaging (if done): Labs Reviewed BASIC METABOLIC PANEL - Abnormal; Notable for the following components: Result Value Glucose 104 (*) All other components within normal limits Narrative: The eGFR should be used for monitoring renal function only and not for medication dosing. PT/INR - Normal Narrative: During the induction phase of oral anticoagulation, the INR may not reflect the anticoagulation status of the patient. Therapeutic ranges for INR's are: Most clinical situations: INR 2.0-3.0 Mechanical Prosthetic Valve: INR 2.5-3.5 Critical: INR >5.0 CBC AND DIFFERENTIAL Narrative: The following orders were created for panel order CBC w/ Diff. Procedure Abnormality Status --------- ------ CBC Auto Differential[[id number]] Final result Please view results for these tests on the individual orders. CBC WITH AUTO DIFFERENTIAL Venous Doppler BILATERAL Lower Extremities MDM: ED Course as of Feb 26 1601 Tue Feb 27, 2020 1530 Discussed all findings with patient and plan to discharge home. Discussed home care, red flags and recommended follow-up. Patient verbalizes understanding agrees with this plan. Platelets: 224 [SS] 1538 Conclusions * No evidence of deep or superficial vein thrombosis in either lower extremity. Risk Factors Bilateral calf pain, history of DVT in left leg. [SS] 1558 SODIUM: 139 [SS] 1558 POTASSIUM: 3.9 [SS] 1558 Bicarbonate: 27 [SS] 1558 Anion Gap: 10 [SS] 1558 GLUCOSE(!): 104 [SS] 1558 CREATININE: 1.15 [SS] 1558 eGFR: 73 [SS] 1558 PROTIME: 12.9 [SS] 1558 INR: 1.0 [SS] 1558 WBC: 6.73 [SS] 1558 RBCs: 5.51 [SS] 1558 HGB: 16.1 [SS] 1558 HCT: 47.1 [SS] ED Course User Index [SS] Perla Dacosta CNP Clinical Impression: 1. Leg pain, bilateral Disposition: Patient is being discharge home. JOSE Bello ED Advanced Practice Provider [facility] Emergency Department (Please note that portions of this note have been completed with a voice recognition software. Efforts were made to correct any errors, but occasionally words are mis-transcribed.) Perla Dacsota CNP 02/27/20 1600 Perla Dacosta CNP 02/27/20 1601 PT PRESENTS TO THE ED FOR L CALF PAIN AND CRAMPING. AMBULATED TO ROOM FROM TRIAGE. HX OF DVT. DENIES CHEST PAIN, SOB. documented in this encounter <item><item> Privacy Markings (unrecogniz ed section and content) Section Author: Carolin Becerra PROHIBITION ON REDISCLOSURE OF CONFIDENTIAL INFORMATION This notice accompanies a disclosure of information concerning a client made to you with the consent of such client. Section Author: Carolin Becerra PROHIBITION ON REDISCLOSURE OF CONFIDENTIAL INFORMATION This notice accompanies a disclosure of information concerning a client made to you with the consent of such client. Care Teams (unrecognized sec tion and content) Filler Shredder Machine Relationship Specialty Start Date End Date Ted Henriquez PA-C [address] [facility] [place] [address] PCP - General 12/17/20 Filler Shredder Machine Relationship Specialty Start Date End Date Ted Henriquez PA-C [address] [facility] [place] [address] PCP - General 12/17/20 Filler Shredder Machine Relationship Specialty Start Date End Date Ted Henriquez PA-C [address] [facility] [place] [address] PCP - General 12/17/20 Filler Shredder Machine Relationship Specialty Start Date End Date Ted Henriquez PA-C [address] [facility] [place] [address] PCP - General 12/17/20 FOR RECORDS PERTAINING TO PATIENTS WHO ARE OR HAVE BEEN ENROLLED IN A CHEMICAL DEPENDENCY/SUBSTANCEABUSE PROGRAM, SOME INFORMATION MAY BE OMITTED. This clinical summary was aggregated from multiple sources. Caution should be exercised in using it in the provision of clinical care. This summary normalizes information from multiple sources, and as a consequence, information in this document may materially change the coding, format and clinical context of patient data. In addition, data may be omitted in some cases. CLINICAL DECISIONS SHOULD BE BASED ON THE PRIMARY CLINICAL RECORDS. [employer] provides no warranty or guarantee of the accuracy or completeness of information in this document.
== END | disposition home or self-care (01) ==
PROVIDERS: PCP Family Medicine; Referring Provider Internal Medicine Critical Care Medicine; Visit Provider Internal Medicine Critical Care Medicine
DX: R06.00 Dyspnea, unspecified (principal)
CPT/HCPCS: 94060; 94726; 94729

== ENCOUNTER → 2023-09-07 | Outpatient (CLI) | payer OTHER, SELFPAY ==
--- OUTSIDE RECORDS SUMMARY | 2023-09-07 08:10 | XMS RPT_ITS | CCD ---
Author Name Unknown Address [id number] [place] [address] Organization [facility] Care Team Providers Care Director Emergency Services Name Role Phone Coleman Yu MD Unavailable [...] Care Unavailable TOMGLADYS TRAN Primary Care Unavailable MEXICAN, DEMETRIS LYLES Attending Unavailable MEXICAN, DEMETRIS LYLES Admitting Unavailable Gladys Wilson Primary [...] ON FILE] Propensity to adverse reactions (disorder) [facility] Medications Current Medications Medication Drug Class(es) [...] 180.3 cm Ted Newbill PA-C Work Phone: [facility] 08-16-2023 15:59-0500 Body mass index (BMI) [Ratio] 29.32 kg/m2 Ted Newbill PA-C Work Phone: [facility] 08-16-2023 15:59-0500 Body temperature 97.7 [degF] Ted Newbill PA-C Work Phone: [facility] 08-16-2023 15:59-0500 Body weight 95.35 kg Ted Newbill PA-C Work Phone: [facility] 08-16-2023 15:59-0500 Diastolic blood pressure 87 mm[Hg] Ted Newbill PA-C Work Phone: [facility] 08-16-2023 15:59-0500 Heart rate 94 /min Ted Newbill PA-C Work Phone: [facility] 08-16-2023 15:59-0500 Systolic blood pressure 148 mm[Hg] Ted Newbill PA-C Work Phone: [facility] 06-21-2023 10:06-0500 Body height 180.3 cm Rashad Eagle APRN-COMPUTER HARDWARE DEVELOPER Work Phone: [facility] 06-21-2023 10:06-0500 Body mass index (BMI) [Ratio] 29.8 kg/m2 Rashad Eagle [employer]ING [employer] OP-COMPUTER HARDWARE DEVELOPER Work Phone: [facility] 06-21-2023 10:06-0500 Body temperature 97.3 [degF] Rashad Eagle [employer]ING [employer] OP-COMPUTER HARDWARE DEVELOPER Work Phone: [facility] 06-21-2023 10:06-0500 Body weight 96.89 kg Rashad Eagle MARKETING [employer] OP-COMPUTER HARDWARE DEVELOPER Work Phone: [facility] 06-21-2023 10:06-0500 Diastolic blood pressure 79 mm[Hg] Rashad Eagle MARKETING [employer] OP-COMPUTER HARDWARE DEVELOPER Work Phone: [facility] 06-21-2023 10:06-0500 Heart rate 70 /min Rashad Eagle MARKETING [employer] OP-COMPUTER HARDWARE DEVELOPER Work Phone: [facility] 06-21-2023 10:06-0500 Respiratory rate 16 /min Rashad Eagle [employer]ETING [employer] OP-COMPUTER HARDWARE DEVELOPER Work Phone: [facility] 06-21-2023 10:06-0500 SaO2% (BldA) [Mass fraction] 97 % Rashad Eagle [employer]ING [employer] OP-COMPUTER HARDWARE DEVELOPER Work Phone: [facility] 06-21-2023 10:06-0500 Systolic blood pressure 125 mm[Hg] Rashad Eagle MARKETING [employer] OP-COMPUTER HARDWARE DEVELOPER Work Phone: [facility] 06-04-2023 11:48-0500 Body height 180.3 cm Rashad Eagle MARKETING [employer] OP-COMPUTER HARDWARE DEVELOPER Work Phone: [facility] 06-04-2023 11:48-0500 Body mass index (BMI) [Ratio] 29.78 kg/m2 Rashad Eagle MARKETING [employer] OP-COMPUTER HARDWARE DEVELOPER Work Phone: [facility] 06-04-2023 11:48-0500 Body temperature 97.7 [degF] Rashad Eagle MARKETING [employer] OP-COMPUTER HARDWARE DEVELOPER Work Phone: [facility] 06-04-2023 11:48-0500 Body weight 96.8 kg Rashad Eagle APRN-COMPUTER HARDWARE DEVELOPER Work Phone: [facility] 06-04-2023 11:48-0500 Diastolic blood pressure 85 mm[Hg] Rashad Eagle APRN-COMPUTER HARDWARE DEVELOPER Work Phone: [facility] 06-04-2023 11:48-0500 Heart rate 62 /min Rashad Eagle APRN-COMPUTER HARDWARE DEVELOPER Work Phone: [facility] 06-04-2023 11:48-0500 Respiratory rate 16 /min Rashad Eagle APRN-COMPUTER HARDWARE DEVELOPER Work Phone: [facility] 06-04-2023 11:48-0500 SaO2% (BldA) [Mass fraction] 96 % Rashad Eagle APRN-COMPUTER HARDWARE DEVELOPER Work Phone: [facility] 06-04-2023 11:48-0500 Systolic blood pressure 131 mm[Hg] Rashad Eagle APRN-COMPUTER HARDWARE DEVELOPER Work Phone: [facility] 03-15-2023 11:56-0400 Body mass index (BMI) [Ratio] 29.43 kg/m2 Ted Henriquez Work Phone: [facility] [place] [address] Work Phone: 03-15-2023 11:56-0400 Body surface area Derived from formula 2.16 m2 Ted Henriquez Work Phone: [facility] [place] [address] Work Phone: 03-15-2023 11:56-0400 Body weight 95.71 kg Ted Henriquez Work Phone: [facility] [place] [address] Work Phone: 03-15-2023 11:56-0400 Diastolic blood pressure 86 mm[Hg] Ted Henriquez Work Phone: [facility] [place] [address] Work Phone: 03-15-2023 11:56-0400 Heart rate 55 /min Ted Enrike Newbill Work Phone: [facility] [place] [address] Work Phone: 03-15-2023 11:56-0400 Systolic blood pressure 128 mm[Hg] Ted M Newbill Work Phone: [facility] [address] Work Phone: 12-22-2022 15:16-0400 Body height 180.3 cm Ted Newbill PA-C Work Phone: [facility] 12-22-2022 15:16-0400 Body mass index (BMI) [Ratio] 28.97 kg/m2 Ted Newbill PA-C Work Phone: [facility] 12-22-2022 15:16-0400 Body weight 94.21 kg Ted Newbill PA-C Work Phone: [facility] 12-22-2022 15:16-0400 Diastolic blood pressure 77 mm[Hg] Ted Newbill PA-C Work Phone: [facility] 12-22-2022 15:16-0400 Heart rate 62 /min Ted Newbill PA-C Work Phone: [facility] 12-22-2022 15:16-0400 Systolic blood pressure 128 mm[Hg] Ted Newbill PA-C Work Phone: [facility] 03-11-2022 13:52-0400 Body height 180.34 cm Ted Enrike Newbill Work Phone: [facility] Work Phone: 03-11-2022 13:52-0400 Body mass index (BMI) [Ratio] 29.93 kg/m2 Ted M Newbill Work Phone: [facility] Work Phone: 03-11-2022 13:52-0400 Body surface area Derived from formula 2.17 m2 Ted M Newbill Work Phone: [facility] Work Phone: 03-11-2022 13:52-0400 Body weight 97.34 kg Ted Henriquez Work Phone: [facility] Work Phone: 03-11-2022 13:52-0400 Diastolic blood pressure 90 mm[Hg] Ted Henriquez Work Phone: [facility] Work Phone: 03-11-2022 13:52-0400 Heart rate 62 /min Ted Henriquez Work Phone: [facility] Work Phone: 03-11-2022 13:52-0400 SaO2% (BldA) [Mass fraction] 96 % Ted Henriquez Work Phone: [facility] Work Phone: 03-11-2022 13:52-0400 Systolic blood pressure 130 mm[Hg] Ted Henriquez Work Phone: [facility] Work Phone: 04-14-2021 14:09-0400 Body height 180.34 cm Ted Henriquez Work Phone: [facility] Work Phone: 04-14-2021 14:09-0400 Body mass index (BMI) [Ratio] 29.5 kg/m2 Ted Henriquez Work Phone: [facility] Work Phone: 04-14-2021 14:09-0400 Body surface area Derived from formula 2.16 m2 Ted Henriquez Work Phone: [facility] Work Phone: 04-14-2021 14:09-0400 Body temperature 97.8 [degF] Ted Enrike Newbill Work Phone: [facility] Work Phone: 04-14-2021 14:09-0400 Body weight 95.94 kg Ted Enrike Newbill Work Phone: [facility] Work Phone: 04-14-2021 14:09-0400 Diastolic blood pressure 79 mm[Hg] Ted Enrike Newbill Work Phone: [facility] Work Phone: 04-14-2021 14:09-0400 Heart rate 69 /min Ted Enrike Newbill Work Phone: [facility] Work Phone: 04-14-2021 14:09-0400 Systolic blood pressure 136 mm[Hg] Ted Enrike Newbill Work Phone: [facility] Work Phone: 03-13-2021 13:46-0400 Body height 180.3 cm Ted Newbill Other Phone: [facility] 03-13-2021 13:46-0400 Body temperature 98.6 [degF] Ted Newbill Other Phone: [facility] 03-13-2021 13:46-0400 Diastolic blood pressure 85 mm[Hg] Ted Newbill Other Phone: [facility] 03-13-2021 13:46-0400 Heart rate 81 /min Ted Newbill Other Phone: [facility] 03-13-2021 13:46-0400 Respiratory rate 16 /min Ted Newbill Other Phone: [facility] 03-13-2021 13:46-0400 SaO2% (BldA) [Mass fraction] 97 % Ted Newbill Other Phone: [facility] 03-13-2021 13:46-0400 Systolic blood pressure 125 mm[Hg] Ted Newbill Other Phone: [facility] 03-08-2021 09:03-0400 Body height 180.34 cm Ted Duartel Work Phone: [facility] Work Phone: 03-08-2021 09:03-0400 Body mass index (BMI) [Ratio] 29.99 kg/m2 Ted Henriquez Work Phone: [facility] Work Phone: 03-08-2021 09:03-0400 Body surface area Derived from formula 2.17 m2 Ted Duatrel Work Phone: [facility] Work Phone: 03-08-2021 09:03-0400 Body temperature 98.4 [degF] Ted Henriquez Work Phone: [facility] Work Phone: 03-08-2021 09:03-0400 Body weight 97.52 kg Ted Henriquez Work Phone: [facility] Work Phone: 03-08-2021 09:03-0400 Diastolic blood pressure 85 mm[Hg] Ted Henriquez Work Phone: [facility] Work Phone: 03-08-2021 09:03-0400 Heart rate 70 /min Ted Duartel Work Phone: [facility] Work Phone: 03-08-2021 09:03-0400 SaO2% (BldA) [Mass fraction] 98 % Ted Calvert Newfloydl Work Phone: [facility] Work Phone: 03-08-2021 09:03-0400 Systolic blood pressure 134 mm[Hg] Ted Enrike Duartel Work Phone: [facility] Work Phone: 02-18-2021 09:56-0400 Body height 180.34 cm Ted Enrike Duartel Work Phone: [facility] Work Phone: 02-18-2021 09:56-0400 Body mass index (BMI) [Ratio] 29.67 kg/m2 Ted Duartel Work Phone: [facility] Work Phone: 02-18-2021 09:56-0400 Body surface area Derived from formula 2.16 m2 Ted Duartel Work Phone: [facility] Work Phone: 02-18-2021 09:56-0400 Body temperature 97.7 [degF] Ted Henriquez Work Phone: [facility] Work Phone: 02-18-2021 09:56-0400 Body weight 96.48 kg Ted Duatrel Work Phone: [facility] Work Phone: 02-18-2021 09:56-0400 Diastolic blood pressure 84 mm[Hg] Ted Enrike Duartel Work Phone: [facility] Work Phone: 02-18-2021 09:56-0400 Heart rate 69 /min Ted Enrike Duartel Work Phone: [facility] Work Phone: 02-18-2021 09:56-0400 Systolic blood pressure 140 mm[Hg] Ted Enrike Newbill Work Phone: [facility] Work Phone: 01-07-2021 11:37-0400 Body height 180 cm Gladys Wilson Other Phone: [facility] 01-07-2021 11:37-0400 Body temperature 98.06 [degF] Gladys Wilson Other Phone: [facility] 01-07-2021 11:37-0400 Diastolic blood pressure 87 mm[Hg] Gladys Wilson Other Phone: [facility] 01-07-2021 11:37-0400 Heart rate 76 /min Gladys Wilson Other Phone: [facility] 01-07-2021 11:37-0400 Systolic blood pressure 137 mm[Hg] Gladys Wilson Other Phone: [facility] 02-27-2020 14:26-0400 Body Temperature 98.1 [degF] [facility] 02-27-2020 14:26-0400 BP Diastolic 91 mm[Hg] [facility] 02-27-2020 14:26-0400 BP Systolic 147 mm[Hg] [facility] 02-27-2020 14:26-0400 Pulse (Heart Rate) 91 /min [facility] 02-27-2020 14:26-0400 Pulse Oximetry 98 % [facility] 02-27-2020 14:26-0400 Respiratory Rate 18 /min [facility] 06-28-2018 14:37-0500 BMI (Body Mass Index) 29.29 kg/m2 Durgasuha Andre [facility] 06-28-2018 14:37-0500 Height 180.3 cm Durgasuha Andre [facility] 06-28-2018 14:37-0500 Weight 95.25 kg Durgasuha Andre [facility] Encounters Encounter Date Encounter Type Care Provider Facility Start: 08-16-2023 End: 08-16-2023 ambulatory TED Calvert [facility] Ambulatory Start: 08-16-2023 End: 08-16-2023 Office outpatient visit 15 minutes Ted Henriquez PA-C Work Phone: [facility] Procedures Date Procedure Procedure Detail Performing Clinician Start: 08-16-2023 FOREIGN BODY REMOVAL - EMBEDDED TED HENRIQUEZ Start: 08-16-2023 Incision & removal f oreign body subq tiss simple Ted Henriquez PA-C Work Phone: Start: 06-21-2023 [facility] APPOIN TMENT REQUEST RASHAD FCO Start: 06-17-2023 CT CHEST W IV CONTRAST RASHAD [facility]CO Start: 06-17-2023 Ct thorax w/contrast material Rashad Les Fco [employer] OP-COMPUTER HARDWARE DEVELOPER Work Phone: Start: 06-08-2023 ECG 12-LEAD [facility] Start: 06-08-2023 AMB REFERRAL TO [facility] TED HENRIQUEZ Start: 06-01-2023 CBC W Auto [...] Author Start: 12-02-2027 Lipid panel Lipid Panel [facility] Start: 07-06-2027 Screening for malignant neoplasm of colon [facility] Start: 12-01-2025 Diabetes mellitus screening Diabetes Screening [facility] Start: 12-23-2023 End: 12-23-2023 Patient encounter procedure 12/23/2023 2:30 PM EDT Office Visit [facility] [address] [place] [id number] Ted Henriquez PA-C [address] [facility] [place] [address] [facility] Start: 12-21-2023 End: 12-21-2023 Patient encounter procedure 12/21/2023 11:00 AM EDT Office Visit [facility] Medical [facility] [place] [address] [place] [address] Rashad Eagle, MARKETING CO OP-COMPUTER HARDWARE DEVELOPER [address] [place] [address] [facility] Medical Office Building [facility] Start: 12-08-2023 End: 12-08-2023 Patient encounter procedure 12/08/2023 10:00 AM EDT Office Visit [facility] [address] [place] [id number] Marcelina Montelongo MD [address] [facility] [place] [address] [facility] Start: 12-02-2023 Hemoglobin A1c measurement Diabetes: Hemoglobin A1C [facility] Start: 06-23-2023 End: 12-23-2023 CBC panel - Blood by Automated count CBC Lab Routine Dyslipidemia Prediabetes Expected: 06/23/2023 (Approximate), Expires: 12/23/2023 [facility] Work Phone: Immunizations Immunization Date Immunization Notes Care Provider Fa cili 04-19-2019 influenza, injectabl e, quadrivalent, preservative free Ted M Newbill Work Phone: [facility] Work Phone: 04-19-2019 influenza virus vaccine, unspecified formulation Ted Newbill PA-C Work Phone: [facility] Work Phone: 06-07-2018 influenza, injectabl e, quadrivalent, preservative free Ted M Newbill Work Phone: [facility] Work Phone: Payers Date Payer Category Payer Private Health Insurance [id number] 2022 Unknown [id number] 2021 Unknown [id number] 1965 Unknown [id number] 2.16.840.1.430767.3.579.2 1967 Unknown [id number] 2.16.840.1.140738.3.579.2 .1967 Unknown [id number] 2.16.840.1.511398.3.579.2 1967 Unknown [id number] 2.840.1.207208.3.579.2 1967 Unknown [id number] 2.840.1.871099.3.579.2 1967 Unknown [id number] 2.840.1.311516.3.579.2 1967 Unknown [id number] 2.840.1.353100.3.579.2 1967 Unknown [id number] 2.840.1.880130.3.579.2 1967 Unknown [id number] 2.16840.1.838648.3.579.2 1967 Unknown [id number] 2.16840.1.600287.3.579.2 1967 Unknown [id number] 2.16840.1.898189.3.579.2 .90 1967 Unknown [id number] 2.16.840.1.436091.3.579.2 1967 Unknown [id number] 2.16.840.1.963333.3.579.2 1967 Unknown [id number] 2.16.840.1.224008.3.579.2 .90 1967 Unknown [id number] 2.16.840.1.456869.3.579.2 .903 1967 Unknown [id number] 2.16.840.1.999669.3.579.2 .1967 Unknown [id number] 2.16.840.1.087867.3.579.2 .1967 Unknown [id number] 2.16.840.1.819958.3.579.2 .1967 Unknown [id number] 2.16.840.1.572085.3.579.2 .1967 Unknown [id number] 2.16.840.1.716800.3.579.2 .1967 Unknown [id number] 2.840.1.657193.3.579.2 1967 Unknown [id number] 2.840.1.934654.3.579.2 .1967 Unknown [id number] 2.840.1.413584.3.579.2 .1967 Unknown [id number] 2.840.1.166876.3.579.2 .1967 Unknown [id number] 2.840.1.342068.3.579.2 .1068 1967 Unknown [id number] 2.840.1.186901.3.579.2 .1068 1967 Unknown [id number] 2.16840.1.934113.3.579.2 .1068 1967 Unknown [id number] 2.16.840.1.652129.3.579.2 .1068 1967 Unknown [id number] 2.16.840.1.350750.3.579.2 .1068 1967 Unknown [id number] 2.16.840.1.555516.3.579.2 .356 1967 Unknown [id number] 2.16.840.1.661466.3.579.2 .356 1967 Unknown [id number] 2.16.840.1.584946.3.579.2 .1245 1967 Unknown [id number] 2.16.840.1.746641.3.579.2 .1244 1967 Unknown [id number] 2.16.840.1.988687.3.579.2 .124 1967 Unknown [id number] 2.16.840.1.118182.3.579.2 .3 1967 Unknown [id number] 2.16.840.1.687618.3.579.2 .3 1967 Unknown [id number] 2.16.840.1.903317.3.579.2 .3 1967 Unknown [id number] 2.16.840.1.344493.3.579.2 .1243 1967 Unknown [id number] 2.16.840.1.400225.3.579.2 .1243 1967 Unknown [id number] 2.16.840.1.815965.3.579.2 .4 1967 Unknown [id number] 2.16.840.1.873483.3.579.2 .1244 Unknown [facility] GEHA xxx xxxxxxxxx Effective for all dates [id number] 1.2.840.509185.1.13.385.2 .7.3.362174.315 Unknown [facility] GEHA xxx [id number] Effective for all dates [id number] 1.2.840.312482.1.13.385.2 .7.3.919764.315 Unknown Social History Date Type Detail Facility Start: 06-28-2018 End: 12-22-2022 Tobacco smoking status NHIS Never smoker [facility] Start: 1965 Sex Assigned At Not on file [facility] Start: 01-24-2019 End: 03-22-2019 Alcohol intake Current non-drinker of alcohol (finding) [facility] Start: 12-12-2022 End: 08-16-2023 Exposure to SARS-CoV-2 (event) Not sure [facility] Start: 02-27-2020 End: 12-22-2022 Tobacco use and exposure Never used [facility] Tobacco smoking consumption unknown [facility] Start: 12-22-2022 End: 03-01-2023 Former smoker Former smoker -[facility] Work Phone: Start: 12-22-2022 End: 08-16-2023 Alcohol intake Ex-drinker (finding) [facility] Work Phone: Start: 12-22-2022 End: 03-01-2023 Tobacco use panel [facility] Work Phone: Clinical Notes 03-08-2022 to 08-16-2023 [...] of right hand - Primary Final diagnoses: [S60.558Q] Foreign body of skin of right hand documented in this encounter [facility] Work Phone: 08-16-2023 Instructions Ted Henriquez PA-C - 08/16/2023 3:50 PM EST Wash daily with soap and water and dressed with bacitracin and gauze/Band-Aid. Do not submerge until wound heals. documented in this encounter [facility] Work Phone: 06-21-2023 History of Present illness [...] will send refer to [facility] [place]. Plan: 1. Referral to [facility] [place] 2. RTC in 6 months with labs prior JUSTYN Lim Referral to Pulmonary in [place]- they will call pt to schedule Pt saw Vascular 06/08- was to return as needed. I gave him the ph # If he wanted to schedule Rtc for COMPUTER HARDWARE DEVELOPER visit 06/21 at 1100 Reviewed AVS with patient- patient verbalizes understanding documented in this encounter [facility] Work Phone: 06-21-2023 Instructions JUSTYN Lim - 06/21/2023 10:00 AM EST Referral to Pulmonary Medicine [facility] RTC in 6 months with labs prior documented in this encounter [facility] Work Phone: 06-04-2023 History of Present illness [...] patient verbalizes understanding documented in this encounter [facility] Work Phone: 06-04-2023 Instructions JUSTYN Lim - 06/04/2023 11:[address] Scan to be scheduled Referral to Vascular Continue on Xarelto 10mg daily RTC after imaging documented in this encounter [facility] Work Phone: 03-15-2023 History of Present illness [...] at 77, at 77.Mr. FLORENCE is of Surinamese/Guinean/Iranian (paternal) and [place]e/[place] (maternal) descent. There is no known Ashkenazi Rastafari ancestry or consanguinity. [facility] Work Phone: 12-22-2022 History of Present illness [...] [Z00.00] Healthcare maintenance documented in this encounter [facility] Work Phone: 12-04-2022 Note Clinic Note: Education [...] Last Updated: 04-Dec-2022 13:52 by Lyubov Andre) [facility] 06-04-2022 Note Clinic Note: Education Assessment: Learning BarriersNo barriers TaughtPatient Primary Language of PatientEnglish Name of Brennna Learner & Relationshipwife present Clinic Visit: Topic(s): Clinic VisitFollow-up plan MethodVerbal, Teach-Back, Handout EvaluationTeaches back Nursing Note: Nursing Notept set up for 6 months with BLU. 12/03 at 2pm . labs per director of accounts payable Electronic Signatures: Lyubov Andre) (Signed 04-Jun-2022 14:51) Authored: Education Assessment, Clinic Visit, Nursing Note Last Updated: 04-Jun-2022 14:51 by Lyubov Andre) [facility] 03-08-2022 History of Present illness [...] intense presentation on the left as well. [facility] Work Phone: documented in this encounter [facility] Work Phone: Evaluation note* Diagnosis SVT (supraventricular tachycardia)- Primary Other specified cardiac dysrhythmias Dyspnea, unspecified type Symptomatic varicose veins of both lower extremities documented in this encounter [facility] Work Phone: Evaluation note* Diagnosis SVT (supraventricular tachycardia) Other specified cardiac dysrhythmias Dyspnea, unspecified type documented in this encounter [facility] Work Phone: Evaluation note* Diagnosis SVT (supraventricular tachycardia) Other specified cardiac dysrhythmias Dyspnea, unspecified type documented in this encounter [facility] Work Phone: Evaluation note* Diagnosis SVT (supraventricular tachycardia) Other specified cardiac dysrhythmias Dyspnea, unspecified type Factor 5 Leiden mutation, heterozygous (CMS/HCC) documented in this encounter [facility] Work Phone: Evaluation note* Diagnosis Foreign body of skin of right hand- Primary documented in this encounter [facility] Work Phone: History of Present illness Narrative* [...] success but reports persistent pain and reduced social staff worker strength in the left. Patient denies trauma, direct blow, or other known precipitating event. [facility] Work Phone: History of Present illness Narrative* Patient presents for evaluation of sinus pressure. Patient reports 1 week of progressively worsening maxillary sinus pain, nasal congestion, and headache. There is reported mild postnasal drip and ear pressure. No fever, cough, or other constitutional signs and symptoms. Symptoms have been refractory to gsvw-uvk-loytjwy medications. Patient is attributing symptoms to seasonal [...] does not appear infected at this time. [facility] Work Phone: History of Present illness Narrative* Patient presents for evaluation of sinus pressure. Patient reports 1 week of progressively worsening maxillary sinus pain, nasal congestion, and headache. There is reported mild postnasal drip and ear pressure. No fever, cough, or other constitutional signs and symptoms. Symptoms have been refractory to gcsq-lde-jzaepnu medications. Patient is attributing symptoms to seasonal [...] does not appear infected at this time. -[facility] Work Phone: History of Present illness Narrative* EMMA FLORENCE is a 57 year-old male with a [] history of breast cancer. He was referred to the [facility] at [facility] by his healthcare provider []. Mr. [...] ____ descent. There is no known Ashkenazi Rastafari ancestry or consanguinity. [place] [id number] Work Phone: Reason for referral (narrative)* Consultation (Routine) - Authorized Specialty Diagnoses / Procedures Referred By Edgar groves Referred To Contact Primary Care Procedures Follow Up In Primary Care Ted Henriquez PA-C [address] [facility] [address] [place] [address] Referral ID Status Reason Start Date Expiration Date V isits Requested Visits Authorized [id number] Authorized 12/22/2022 06/20/2023 1 1 [facility] Work Phone: Reason for referral (narrative)* Consultation (Routine) - Authorized Specialty Diagnoses / Procedures Referred By Contac t Referred To Contact Diagnoses Symptomatic varicose veins of both lower extremities Rashad Eagle APRN-CNP [address] [place] [address] Dipesh Benites MD [address] [facility] [address] [place] [id number] Referral ID Status Reason Start Date Expiration Date Visits Requested Visits Authorized [id number] Authorized Specialty Services Required 3 06/03/2024 1 1 * Imaging (Routine) - Authorized Specialty Diagnoses / Procedures Referred By Edgar t Referred To Contact Radiology Diagnoses SVT (supraventricular tachycardia) Dyspnea, unspecified type Procedures CT chest w IV contrast Rashad Eagle APRN-CNP [address] [place] [address] Referral ID Status Reason Start Date Expiration Date Visits Requested Visits Authorized [id number] Authorized Perform Procedure 3 06/03/2024 1 1 [facility] Work Phone: History of Present Illness * Durga Andre MD - 06/28/2018 4:51 PM EST Dictation on: 06/28/2018 4:55 PM by: DURGA ANDRE [[id number]] in this encounter* Durga Andre MD - 12/13/2018 5:29 PM EDT Dictation on: 12/13/2018 5:30 PM by: DURGA ANDRE [[id number]] documented in this encounter* Durga Andre MD - 01/24/2019 3:53 PM EDT Dictation on: 01/24/2019 3:55 PM by: DURGA ANDRE [[id number]] documented in this encounter* Laura Whitlock RN - 03/08/2019 8:22 AM EDT EKG completed for pre op documented in this encounter* Durga Andre MD - 05/11/2019 12:10 PM EDT Dictation on: 05/11/2019 12:11 PM by: DURGA ANDRE [[id number]] documented in this encounter* Rm Ramirez PTA - 06/14/2019 8:30 AM EST [facility] OUTPATIENT REHABILITATION DAILY TREATMENT NOTE Today's [...] Vitals 20# restriction - 06/14/19 Therapeutic Exercise (16008) Intervention Supine SH flexion x10 Parameters S/L SH ABD (A) Intervention S/L SH ER 2# 2x10 Parameters Supine scapular retraction x20 Intervention Standing SH rows GTT x20 Parameters Standing SH Ext GTT x20 Intervention SA punch ups 3# x20 Parameters sarah 5' Intervention walkouts ER/IR GTT x20 each Manual Therapy (00768) Intervention STM R bicep/B UT/Rdeltoid 6' Parameters [...] on strengthening Rm Ramirez PTA STATE LICENSE, [id number] documented in this encounter* Rm Ramirez PTA - 06/19/2019 3:15 PM EST [facility] OUTPATIENT REHABILITATION DAILY TREATMENT NOTE Today's [...] Vitals 20# restriction - 06/14/19 Therapeutic Exercise (23056) Intervention Supine SH flexion x10 Parameters S/L SH ABD (A) Intervention S/L SH ER 2# 2x10 Parameters Supine scapular retraction x20 Intervention Standing SH rows GTT x20 Parameters Standing SH Ext GTT x20 Intervention SA punch ups 3# x20 Parameters sarah 5' Intervention IR GTT x20 each Parameters ER YTT x20 Intervention UEB 6' fwd/back Manual Therapy (25608) Intervention STM R bicep/B UT/Rdeltoid 5' Parameters [...] and strength Rm Ramirez PTA STATE LICENSE, [id number] documented in this encounter* Rm Ramirez PTA - 06/21/2019 8:30 AM EST [facility] OUTPATIENT REHABILITATION DAILY TREATMENT NOTE Today's [...] Vitals 20# restriction - 06/14/19 Therapeutic Exercise (11383) Intervention Supine SH flexion x10 Parameters S/L SH ABD 1# x20 Intervention S/L SH ER 2# 2x10 Intervention Standing SH rows GTT x20 Parameters Standing SH Ext GTT x20 Intervention SA punch ups 3# x20 Parameters sarah 5' Intervention IR GTT x20 each Parameters ER YTT x20 Intervention UEB 6' fwd/back Parameters alphabet on wall x1 Manual Therapy (39680) Intervention STM R bicep/B UT/Rdeltoid 5' Parameters [...] and strength Rm Ramirez PTA STATE LICENSE, [id number] documented in this encounter* Yuniel Malik PTA - 06/27/2019 4:45 PM EST [facility] OUTPATIENT REHABILITATION DAILY TREATMENT NOTE Today's [...] - 06/27/19 1645 OTHER Notes Rm 12/28 [id number] Vitals 20# restriction - 06/14/19 Therapeutic Exercise (90555) Intervention Supine SH flexion x10 Parameters S/L SH ABD 1# x20 Intervention S/L SH ER 2# 2x10 Intervention Standing SH rows GTT x20 Parameters Standing SH Ext GTT x20 Intervention SA punch ups 3# x20 Parameters sarah 5' Intervention IR GTT x20 each Parameters ER YTT x20 Intervention UEB 6' fwd/back Parameters alphabet on wall x1 Manual Therapy (80346) Intervention STM R bicep/B UT/Rdeltoid 5' Parameters [...] progressing ROM Yuniel Malik PTA STATE LICENSE, [id number] documented in this encounter* Yuniel Malik, TRAVEL CONSULTANT - 06/30/2019 4:00 PM EST [facility] OUTPATIENT REHABILITATION DAILY TREATMENT NOTE Today's [...] - 06/30/19 1652 OTHER Notes Rm 01/27 [id number] Vitals 20# restriction - 06/14/19 Therapeutic Exercise (85596) Intervention Supine SH flexion x10 Parameters S/L SH ABD 1# x20 Intervention S/L SH ER 2# 2x10 Intervention Standing SH rows GTT x20 Parameters Standing SH Ext GTT x20 Intervention SA punch ups 3# x20 Parameters sarah 5' Intervention IR LINA x20 each Parameters ER YOTT x20 Intervention UEB L2.5 6' fwd/back Parameters alphabet on wall 1lb x1 Manual Therapy (98892) Intervention STM R bicep/B UT/Rdeltoid 5' Parameters [...] as tolerated Yuniel Malik PTA STATE LICENSE, [id number] documented in this encounter* Yuniel Malik PTA - 07/04/2019 8:30 AM EST [facility] OUTPATIENT REHABILITATION DAILY TREATMENT NOTE Today's [...] Vitals 20# restriction - 06/14/19 Therapeutic Exercise (91973) Intervention Supine SH flexion 1lb x10 Parameters [...] alphabet on wall 2lb x1 Manual Therapy (76444) Intervention STM R bicep/B UT/Rdeltoid 5' Parameters [...] as tolerated Yuniel Malik PTA STATE LICENSE, [id number] documented in this encounter* Rm Ramirez PTA - 07/07/2019 4:00 PM EST [facility] OUTPATIENT REHABILITATION DAILY TREATMENT NOTE Today's [...] Vitals 20# restriction - 06/14/19 Therapeutic Exercise (20376) Intervention Supine SH flexion 1lb x10 Parameters [...] and ROM Rm Ramirez PTA STATE LICENSE, [id number] documented in this encounter* Rm Ramirez PTA - 07/14/2019 2:30 PM EST [facility] OUTPATIENT REHABILITATION DAILY TREATMENT NOTE Today's [...] Vitals 20# restriction - 06/14/19 Therapeutic Exercise (51518) Intervention Supine SH flexion 1lb x10 Parameters [...] on strengthening Rm Ramirez PTA STATE LICENSE, [id number] documented in this encounter* Durga Andre MD - 07/18/2019 10:22 AM EST Dictation on: 07/18/2019 10:22 AM by: DURGA ANDRE [[id number]] documented in this encounter* Durga Andre MD - 10/17/2019 3:54 PM EDT Dictation on: 10/17/2019 3:55 PM by: DURGA ANDRE [[id number]] documented in this encounter* Rm Ramirez PTA - 06/12/2019 10:00 AM EST [facility] OUTPATIENT REHABILITATION DAILY TREATMENT NOTE Today's [...] OTHER Notes Rm 08/30 10:00-10:35 Therapeutic Exercise (01081) Intervention Supine SH flexion x10 Parameters S/L SH ABD (A) Intervention S/L SH ER (A) Parameters Supine scapular retraction x20 Intervention Standing SH rows (A) Parameters Standing SH Ext (A) Intervention cane flexion x10 Parameters cane ER x10 Manual Therapy (54990) Intervention STM R bicep/B UT/Rdeltoid 6' Parameters [...] on ROM Rm Ramirez PTA STATE LICENSE, [id number] documented in this encounter* Marina Arevalo LPN - 03/31/2019 9:42 AM EDT error documented in this encounter* Durga Andre MD - 01/04/2019 5:00 PM EDT Dictation on: 01/04/2019 5:01 PM by: DURGA ANDRE [[id number]] documented in this encounter Assessments Diagnosis Impingement [...] FoundDocuments on File Type Date Recorded 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 Advance Directives and Living Will Documents on File Type Date Recorded 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 Advance Directives and Livin g Will 01/18/2019 9:59 AM Documents on File Type Date Recorded 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 Advance Directives and Livin g Will 01/18/2019 9:59 AM Documents on File Type Date Recorded 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 Advance Directives and Livin g Will 02/27/2020 12:00 AM Documents on File Type Date Recorded 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 Advance Directives and Living Will Reason for Referral Status Reason Specialty Diagnoses / Procedures Referre d By Contact Referred To Contact Closed Radiology Diagnoses Impingement syndrome of right shoulder Procedures MR Shoulder Right Without Contrast Durga Andre MD [address] [place] [address] Status Reason Specialty Diagnoses / Procedures Referred By Contact Referred To Contact Pending Review Radiology Diagnoses Impingement syndrome of right shoulder Procedures MR Shoulder Right Without Contrast Durga Andre MD [address] [place] [id number] Specialty Diagnoses / Procedures Referred By Edgar groves Referred To Contact Radiology Diagnoses SVT (supraventricular tachycardia) Dyspnea, unspecified type Procedures CT chest w IV contrast Rashad Eagle, [employer] OP-COMPUTER HARDWARE DEVELOPER [address] [place] [address] Referral ID Status Reason Start Date Expiration Date Visits Requested Visits Authorized [id number] Authorized Perform Procedure 3 06/03/2024 1 1 [...] Status:Active Discharge Instructions * Instructions* Perla Dacosta, COMPUTER HARDWARE DEVELOPER - 02/27/2020 Increase your clear fluids. Gentle stretching. Follow-up with your PCP as directed. If any new or worsening symptoms may return to the emergency department anytime. * Attachments The following attachments cannot be sent through Care Everywhere. * Leg Pain (Guinean) documented in this encounter Chief Complaint * [...] Right Without Contrast Durga Andre MD [address] [place] [address] Reason Comments Follow-up MRI results Reason Comments Pre-op Exam EKG Status Reason Specialty Diagnoses / Procedures Referred By Contact Referred To Contact Closed Cardiology Diagnoses Pre-op testing Right rotator cuff tear Procedures ECG 12 Lead Durga Andre MD [address] [place] [id number] Reason Comments Follow-up Reason Comments Physical Therapy Status Reason Specialty Diagnoses / Procedures Referred By Contact Referred To Contact Authorized Patient Preference Physical Therapy / Rehabilitation Diagnoses S/P rotator cuff repair Durga Andre MD [address] [place] [address] [address] Reason Comments Leg Pain Status Reason Specialty Diagnoses / Procedures Referred By Contact Referred To Contact Closed Patient Preference Physical Therapy / Rehabilitation Diagnoses S/P rotator cuff repair Durga Andre MD [address] [facility] [place] [address] Rehab [place] [address] [place] [address] [place] [address] Reason Comments Follow-up Reason Comments Med Refill Patient states needs refill on meds and would like labs done. Reason Comments superficial vein thrombosis Specialty Diagnoses / Procedures Referred By Contac t Referred To Contact Diagnoses Supraventricular tachycardia, unspecified Dyspnea, unspecified Procedures CHG DIAGNOSTIC COMPUTED TOMOGRAPHY THORAX W/CONTRAST [facility] [address] [place] [address] Referral ID Status Reason Start Date Expiration Date Visits Re quested Visits Authorized [id number] 1 1 Reason Comments superficial venous thrombosis [...] DATE CREATED AUTHOR AUTHOR'S ORGANIZ ATION 10/17/2019 [facility] DATE CREATED AUTHOR AUTHOR'S ORGANIZ ATION 02/29/2020 [facility] DATE CREATED AUTHOR AUTHOR'S ORGANIZ ATION 12/02/2022 [facility] DATE CREATED AUTHOR AUTHOR'S ORGANIZ ATION 03/04/2023 [facility] DATE CREATED AUTHOR AUTHOR'S ORGANIZ ATION 03/18/2023 [facility] DATE CREATED AUTHOR AUTHOR'S ORGANIZ ATION 2023 [facility] DATE CREATED AUTHOR AUTHOR'S ORGANIZ ATION 06/06/2023 [facility] DATE CREATED AUTHOR AUTHOR'S ORGANIZ ATION 07/02/2023 [facility] DATE CREATED AUTHOR AUTHOR'S ORGANIZ ATION 08/19/2023 [facility] Pedro Salvador LPN - 02/27/2020 3:55 PM EDPerla Jennings, BLU - 02/27/2020 2:23 PM EDTAlex العلي RN - 02/27/2020 2:19 PM EDT ED Notes (unrecognized secti on and content) Discharge instructions reviewed by this SALES AND SERVICE ADVISOR. Pt verbalizes understanding and denies any further questions at this time. Pt ambulatory to lobby without difficulty. Pt shows no s/s of distress at this time. [facility] ED AISHA Note: NAME: Emma Florence 54 y.o. CSN: [id number] PCP: Gladys Wilson MD History: Chief Complaint: [...] file Gets together: Not on file Attends christian service: Not on file Active member of [...] Procedure Abnormality Status --------- ------ CBC Auto Differential[[id number]] Final result Please view results for these [...] home. JOSE Bello ED Advanced Practice Provider [facility] Emergency Department (Please note that portions of this note have been completed with a voice recognition software. Efforts were made to correct any errors, but occasionally words are mis-transcribed.) Perla Dacosta CNP 02/27/20 1600 Perla Dacosta CNP 02/27/20 [...] Care Teams (unrecognized sec tion and content) Director Emergency Services Relationship Specialty Start Date End Date Ted Henriquez PA-C [address] [place] [address] PCP - General 12/17/20 Director Emergency Services Relationship Specialty Start Date End Date Ted Henriquez PA-C [address] [place] [address] PCP - General 12/17/20 Director Emergency Services Relationship Specialty Start Date End Date Ted Henriquez PA-C [address] [place] [address] PCP - General 12/17/20 Director Emergency Services Relationship Specialty Start Date End Date Ted Henriquez PA-C [address] [facility] [address] [facility] [address] PCP - General 12/17/20 FOR RECORDS PERTAINING [...] BE BASED ON THE PRIMARY CLINICAL RECORDS. [employer] provides no warranty or guarantee of the accuracy or completeness of information in this document.
[2023-09-07 08:15] VITALS: PULSE 61; PULSE 65; PULSE 68; PULSE 78; PULSE 81; PULSE 82; PULSE 84; PULSE 85; O2SAT 100; O2SAT 92; O2SAT 93; O2SAT 94; O2SAT 96; O2SAT 98; O2SAT 99
--- NOTE | 2023-09-09 09:33 | PCM.PSN.6M ---
PSN 6 Minute Walk Test 6 Minute Walk Test 6 Minute Walk Test: 6 Minute Walk Test PSN:6-Minute Walk Test Start: 09/07/23 08:28 Freq: Status: Active Protocol: RESP.6MINW Document 09/07/23 08:15 AE (Rec: 09/07/23 08:31 [facility] Desktop) 6 Minute Walk Test Date Performed 09/07/23 Time Performed 08:15 Height 5 ft 11 in Weight: 210 lb Weight in Pounds 210.[address]: Dr Yo Assistive device used: None Pre-test Oxygen Delivery Method Room Air Pulse Ox 99 Pulse Rate (60-100) 61 Dyspnea Georgia Scale (0-10) 0.5 Exertion Georgia Scale (6-20) 6 1st minute Oxygen Delivery Method Room Air Pulse Ox 98 Pulse Rate (60-100) 78 2nd minute Oxygen Delivery Method Room Air Pulse Ox 99 Pulse Rate (60-100) 68 3rd minute Oxygen Delivery Method Room Air Pulse Ox 93 Pulse Rate (60-100) 85 4th minute Oxygen Delivery Method Room Air Pulse Ox 92 Pulse Rate (60-100) 82 5th minute Oxygen Delivery Method Room Air Pulse Ox 94 Pulse Rate (60-100) 84 6th minute Oxygen Delivery Method Room Air Pulse Ox 96 Pulse Rate (60-100) 81 Dyspnea Georgia Scale (0-10) 0.5 Exertion Georgia Scale (6-20) 8 Post-test Oxygen Delivery Method Room Air Pulse Ox 100 Pulse Rate (60-100) 65 Full Laps Walked 22 Partial Lap, Number of Tiles Walked 5 Total Distance Walked (ft) 1303 Interpretation Interpretation: The patient ambulated 1303 feet over the course of 6 minutes beginning on room air without assistive devices. Pretesting oxygen saturation was noted to be 99% on room air. With ambulation, the marquita oxygen saturation was 92%. This represents a significant exertional oxygen desaturation. Recommendations Recommendations: There is no indication for the use of supplemental oxygen at this time. However, close interval follow-up was recommended, given the degree of oxygen desaturation noted during the study.
== END | disposition home or self-care (01) ==
LOC: PSN 08:05
PROVIDERS: PCP Family Medicine; Referring Provider Internal Medicine Critical Care Medicine; Visit Provider Internal Medicine Critical Care Medicine
DX: R06.00 Dyspnea, unspecified (principal)
CPT/HCPCS: 94618

== ENCOUNTER → 2023-10-12 | Outpatient (CLI) | payer OTHER, SELFPAY ==
--- NOTE | 2023-10-12 12:47 | ECHOCS_ITS ---
Reason For Study: SOB Procedure This was a 2D Doppler, Color Flow transthoracic echocardiogram. Exam performed in department. Left Ventricle Normal LV size. Left ventricular systolic function is normal. The estimated ejection fraction is 65 %. Stage 1 diastolic dysfunction. No regional wall motion abnormalities noted. Right Ventricle Normal RV size. Normal systolic function. Atria Normal left atrium. Normal right atrium. Probable chiari network. Mitral Valve Normal mitral valve. Mild (1+) eccentric mitral valve insufficiency. Tricuspid Valve Normal tricuspid valve. Mild tricuspid valve insufficiency. Pulmonary artery systolic pressure is 29 mmHg. Aortic Valve Trisinus/trileaflet aortic valve. Mild focal aortic valve thickening. Trivial aortic valve insufficiency. Pulmonic Valve Normal pulmonic valve. Great Vessels Normal aortic root. The pulmonary artery is normal size. Inferior vena cava collapse with respiration. Pericardium/Pleural No pericardial effusion. MMode/2D Measurements & Calculations LVIDd: 4.5 cm IVSd: 1.1 cm Ao root diam: 3.6 cm LVIDs: 2.9 cm LVPWd: 1.1 cm RVDd: 3.6 cm FS: 36.3 % LAV(MOD-bp): 59.7 ml LVAd ap4: 33.6 cm2 LVAd ap2: 31.9 cm2 LAV(MOD-bp) Indexed: 27.9 ml/m2 LVLd ap4: 8.2 cm LVLd ap2: 8.3 cm LAV(MOD-sp2): 62.9 ml EDV(MOD-sp4): 111.4 ml EDV(MOD-sp2): 101.8 ml LAV(MOD-sp4): 47.2 ml EDV(sp4-el): 116.6 ml EDV(sp2-el): 103.9 ml LVAs ap4: 19.5 cm2 LVAs ap2: 18.0 cm2 LVLs ap4: 6.8 cm LVLs ap2: 7.1 cm ESV(MOD-sp4): 46.4 ml ESV(MOD-sp2): 38.7 ml ESV(sp4-el): 47.0 ml ESV(sp2-el): 38.5 ml EF(MOD-sp4): 58.3 % EF(MOD-sp2): 62.0 % EF(sp4-el): 59.7 % SV(MOD-sp4): 65.0 ml SV(MOD-sp2): 63.1 ml SV(sp4-el): 69.6 ml LA dimension(2D): 3.7 cm LA A4 area: 17.2 cm2 RA A4 area: 13.4 cm2 TAPSE: 1.9 cm Time Measurements MV dec time: 0.18 sec Doppler Measurements & Calculations MV E max dylan: 50.4 cm/sec Lat Peak E' Dylan: 8.7 cm/sec Med Peak E' Dylan: 8.5 cm/sec MV A max dylan: 60.0 cm/sec E/E' lat: 5.8 E/E' med: 5.9 MV E/A: 0.84 MV dec slope: 274.2 cm/sec2 Ao V2 max: 145.2 cm/sec LV V1 max: 102.3 cm/sec Ao max P.4 mmHg LV V1 max P.2 mmHg Ao V2 mean: 103.2 cm/sec LV V1 mean P.3 mmHg Ao mean P.9 mmHg LV V1 mean: 73.5 cm/sec Ao V2 VTI: 36.1 cm LV V1 VTI: 22.7 cm AV (velocity ratio): 0.63 PA V2 max: 113.5 cm/sec TR max dylan: 251.0 cm/sec TR max P.2 mmHg ECHO/Echo Complete Interpretation Summary Normal LV size. Left ventricular systolic function is normal. The estimated ejection fraction is 65 %. Stage 1 diastolic dysfunction. Pulmonary artery systolic pressure is 29 mmHg. The global longitudinal strain is normal. The global longitudinal strain = -19. 4 % (normal). Ordering Physician: Ari Yo Referring Physician: Marcelina Montelongo Performed By: Annamaria Goddard RDCS
== END | disposition home or self-care (01) ==
LOC: CVS 12:46
PROVIDERS: PCP Family Medicine; Referring Provider Internal Medicine Critical Care Medicine; Visit Provider Internal Medicine Critical Care Medicine
DX: R06.00 Dyspnea, unspecified (principal)
CPT/HCPCS: 93306